=== PATIENT | male | born 1955 | race Caucasian/White ===

== ENCOUNTER 2019-10-29 07:57 | Day surgery (SDC) | payer BC, OTHER ==
[~2019-10-29 07:57] MED LIST: Lactated Ringers 1,000 ML IV SCH
--- NOTE | 2019-10-29 09:19 | PCM.PREANE ---
Preanesthetic Assessment - Anesthesia/Transfusion/Family Hx Anesthesia History: Prior Anesthesia Without Reaction Family History of Anesthesia Reaction: No Transfusion History: No Prior Transfusion(s) - Review of Systems General: No Symptoms Pulmonary: No Symptoms Cardiovascular: No Symptoms Gastrointestinal: No Symptoms Neurological: No Symptoms Other: Reports: None - Physical Assessment NPO Status Date: 10/28/19 NPO Status Time: 22:00 Vital Signs: Last Vital Signs Temp 98.2 F 10/29/19 08:15 Pulse 85 10/29/19 08:15 Resp 15 10/29/19 08:15 BP 130/85 10/29/19 08:15 Pulse Ox 94 L 10/29/19 08:15 Height: 5 ft 6 in Weight: 98.883 kg ASA Class: 2 Airway Class: Mallampati = 2 Dentition: Reports: Missing Tooth/Teeth (also loose mandibular central incisor) ROM/Head Extension: Full Lungs: Clear to Auscultation, Normal Respiratory Effort Cardiovascular: Regular Rate, Regular Rhythm - Allergies Allergies/Adverse Reactions: Allergies Allergy/AdvReac Type Severity Reaction Status Date / Time cephalexin monohydrate Allergy Hives Verified 10/24/19 08:57 [From Keflex] - Blood Blood Available: No - Anesthesia Plan Pre-Op Medication Ordered: None - Acknowledgements Anesthesia Type Planned: General Anesthesia Pt an Appropriate Candidate for the Planned Anesthesia: Yes Alternatives and Risks of Anesthesia Discussed w Pt/Guardian: Yes Pt/Guardian Understands and Agrees with Anesthesia Plan: Yes Additional Comments: PMH: htn- on no meds, bph, loose tooth PLAN: tiva PreAnesthesia Questionnaire HEENT History: Reports: Other (See Below) Other HEENT History: wears glasses Cardiovascular History: Reports: Hypertension Other Cardiovascular History: hx of hypertension- no medications now Respiratory History: Reports: Other (See Below) Other Respiratory History: his thinks he has sleep apnea- he has not been tested Gastrointestinal History: Reports: Colon Polyp, Hemorrhoids Musculoskeletal History: Reports: Gout Neurological History: Reports: Concussion Endocrine/Metabolic History: Reports: Obesity/BMI 30+ Hematologic History: Reports: Anemia, Iron Deficiency Dermatologic History: Reports: Eczema - Past Surgical History GI Surgical History: Reports: Hernia, Abdominal Other GI Surgeries/Procedures: hx of Umbilical Hernia repair - SUBSTANCE USE Smoking Status *Q: Never Smoker Recreational Drug Use History: No - HOME MEDS Home Medications: Home Meds Clobetasol [Clobetasol Propionate 0.05% Cream] 1 dose TOP BID PRN 10/24/19 [ History] Iron Ag,Ps/C/Fa6/B12/Zn/SA/Sto [Niferex Tablet] 1 tab PO DAILY 10/24/19 [History ] - CURRENT (IN HOUSE) MEDS Current Meds: Current Medications Lactated Ringer's (Ringers, Lactated) 1,000 mls @ 125 mls/hr IV ASDIRECTED [facility] Last Admin: 10/29/19 08:25 Dose: 125 mls/hr
[2019-10-29] MEDS ORDERED: Lidocaine 2% 5 ML SDV ONE (09:23)
[2019-10-29] MEDS ORDERED: Propofol 200 MG/20 ML SDV ONE ×2 (09:23→10:07)
[2019-10-29] MEDS ORDERED: Midazolam 1 MG/ML 2 ML SDV ONE (09:51)
--- NOTE | 2019-10-29 11:40 | PCM48HPAN ---
Post Anesthesia Note - EVALUATION WITHIN 48HRS OF ANESTHETIC Vital Signs in Normal Range: Yes Patient Participated in Evaluation: Yes Respiratory Function Stable: Yes Airway Patent: Yes Cardiovascular Function Stable: Yes Hydration Status Stable: Yes Pain Control Satisfactory: Yes Nausea and Vomiting Control Satisfactory: Yes Mental Status Recovered: Yes Vital Signs: Last Vital Signs Temp 98.2 F 10/29/19 08:15 Pulse 65 10/29/19 10:42 Resp 10 L 10/29/19 10:42 BP 132/78 10/29/19 10:42 Pulse Ox 96 10/29/19 10:42
--- NOTE | 2019-10-29 11:40 | PCM.POSTAN ---
POST ANESTHESIA ASSESSMENT - MENTAL STATUS Mental Status: Alert, Oriented - VITAL SIGNS Vital Signs: Last Vital Signs Temp 98.2 F 10/29/19 08:15 Pulse 65 10/29/19 10:42 Resp 10 L 10/29/19 10:42 BP 132/78 10/29/19 10:42 Pulse Ox 96 10/29/19 10:42 - RESPIRATORY Respiratory Status: Respiratory Rate WNL, Airway Patent - CARDIOVASCULAR CV Status: Pulse Rate WNL, Blood Pressure Stable - GASTROINTESTINAL GI Status: No Symptoms - POST OP HYDRATION Hydration Status: Adequate & Stable
--- NOTE | 2019-10-29 12:11 | PCM.OPNOTE ---
- General Post-Op/Procedure Note Date of Surgery/Procedure: 10/29/19 Operative Procedure(s): egd w bx. colonoscopy w bx and tattoo Findings: see [id number] Pre Op Diagnosis: BRBPR and gerd Post-Op Diagnosis: Same Anesthesia Technique: Moderate Sedation Primary Surgeon: Francisco Diana Pathology: egd bx colon mass at 45cm bx and tattooed Complications: None Condition: Good Free Text/Narrative:: Intake & Output 10/28/19 10/29/19 10/29/19 22:59 06:59 14:59 Intake Total 850 Balance 850
--- NOTE | 2019-10-29 12:54 | OR ---
SURGEON: Francisco Diana MD DATE OF PROCEDURE: 10/29/2019 PREOPERATIVE DIAGNOSES: Rectal bleeding and recurrent gastroesophageal reflux disease. PROCEDURES PERFORMED: Esophagogastroduodenoscopy with biopsy and colonoscopy. DESCRIPTION OF PROCEDURE: EGD: The patient was taken to the endoscopy room, and with the [employer] COORDINATOR, Diprivan was administered. A well-lubricated EGD scope was gently inserted through the oropharynx, down the esophagus, passing through the gastroesophageal junction, into the stomach. The mucosa was examined upon the passage. Any etiology will be noted. Once in the stomach, we continued to advance to the distal antrum, passed through the pylorus into the second portion of the duodenum. Again, the mucosa was examined for any abnormality and etiology. The scope was then retrieved back to the stomach and then retroflexed to look at the fundus of the stomach. If a biopsy was indicated, we will biopsy the antrum, body, and gastroesophageal junction. The air will be sucked out while the scope is retrieved to reduce the patient's discomfort. The patient tolerated the procedure well. There were no intraoperative complications. Dr. Diana was present through the whole procedure. Prior to surgery, a time-out had been called, the patient identified, procedure identified and antibiotic administered. The patient was taken to the endoscopy room. A time out was called, patient identified, and procedure identified. Diprivan was then administrated. Patient went from awake to sleep, hearing doctor talking or door closing is normal. Perineum inspection and digital examination were then performed. A well- lubricated colonoscope was gently inserted through the rectum, advanced past the rectosigmoid junction, the descending colon, splenic flexure, transverse colon, hepatic flexure, ascending colon, arrived to the cecum. Cecum was identified as dictated in the finding. Then the scope was carefully withdrawn while attention was paid to the mucosal surface for any abnormality. Air will be sucked out during the scope withdrawal. At the rectum, retroflexed to examine any rectal diseases, fistula or hemorrhoids. Patient tolerated procedure well. There were no intraoperative complications, and Dr. Diana was present throughout the whole procedure. FINDINGS: EGD findings: 1. The patient is easily sedated with [employer] COORDINATOR and Diprivan, the patient is soundly snoring. 2. Oropharynx and proximal esophagus are free of disease, stricture, ulceration, none of those. Distal esophagus at GE junction at 40 shows minimal salmon-colored change, suggests mild acid reflux. Stomach rugae are normal in appearance, and in the greater curvature, there are scattered and small gastric polyps, very small, about 1 mm, only a few of them. The antrum looks fine. Duodenum is grossly normal in appearance. Retroflexed look at the fundus of stomach, there is no hiatal hernia. Biopsy done at antrum, body, and biopsied one of the polyp and the GE junction at 40 and biopsy done at those places and sucked out the gas while scope pulling out. During the whole study, there is no ulcer, blood, bile, or food particle observed. Colonoscopy findings: 1. The patient is easily sedated with [employer]IENCE COORDINATOR and Diprivan, the patient is soundly snoring. 2. Bowel prep is average with some liquid stool, no semi-formed stool. 3. Colon, can only go to 45 cm and aborted. Encountered apple-core lesion and too small for the scope to pass through and very suspicious for malignancy. Biopsy done at apple-core lesion, and 10 cm prior to that, there is a small 3 mm sessile polyp. It was removed with biopsy forceps. The patient had some diverticula proximal to this. No signs or symptoms of diverticulitis. Retroflexed look at the rectum, the patient has mild internal hemorrhoids, no external hemorrhoids. The place where the apple-core lesion was and a little bit distal to that, like 1 to 2 cm, it was tattooed. Again, we did not attempt to pass the apple-core lesion as it is too tight and it really looks like malignancy. PLAN: The patient will return to the office, and we will probably get a CAT scan with p.o. and IV contrast 1 week from now and then will return to the office to discuss management plan. MARCELLE / YAIR /[id number]
--- NOTE | 2019-10-29 15:48 | PCM48HPAN ---
Post Anesthesia Note - EVALUATION WITHIN 48HRS OF ANESTHETIC Vital Signs in Normal Range: Yes Patient Participated in Evaluation: Yes Respiratory Function Stable: Yes Airway Patent: Yes Cardiovascular Function Stable: Yes Hydration Status Stable: Yes Pain Control Satisfactory: Yes Nausea and Vomiting Control Satisfactory: Yes Mental Status Recovered: Yes Vital Signs: Last Vital Signs Temp 36.8 C 10/29/19 10:50 Pulse 73 10/29/19 10:50 Resp 15 10/29/19 10:50 BP 140/77 10/29/19 10:50 Pulse Ox 97 10/29/19 10:50
== END 2019-10-29 11:20 | disposition home or self-care (01) ==
LOC: MW.SDS 07:57
PROVIDERS: ATTEND Surgery
DX: C18.7 Malignant neoplasm of sigmoid colon (principal); D12.5 Benign neoplasm of sigmoid colon; K21.9 Gastro-esophageal reflux disease without esophagitis; K31.7 Polyp of stomach and duodenum; K20.9 Esophagitis, unspecified; K64.8 Other hemorrhoids; I10 Essential (primary) hypertension; E66.9 Obesity, unspecified; Z88.1 Allergy status to other antibiotic agents; Z79.899 Other long term (current) drug therapy; Z68.35 Body mass index [BMI] 35.0-35.9, adult
CPT/HCPCS: 43239; 45378; 88305; 88312; J2001; J2250; J2704; J7120

== ENCOUNTER 2019-12-30 10:48 | Emergency (ER) | payer MEDICARE, OTHER ==
[2019-12-30] MEDS ORDERED: Sodium Chloride 0.9% 1,000 ML IV ONE (11:12)
[2019-12-30] MEDS: HYDROmorphone 1 MG/ML Syringe IVPUSH PRN ×2 (11:21→14:48)
[2019-12-30] MEDS ORDERED: Ondansetron 4 MG/2 ML SDV IVPUSH ONE ×2 (11:23→11:24)
[2019-12-30] MEDS ORDERED: Ondansetron 4 MG/2 ML SDV ONE (11:24)
[2019-12-30 11:57] LABS: CARBON DIOXIDE,CO2 21.8 mmol/L (21.0-32.0); POTASSIUM,K 3.9 mmol/L (3.5-5.1)
[2019-12-30] MEDS ORDERED: Sodium Chloride 0.9% 500 ML IV ONE ×2 (12:03→14:03)
--- NOTE | 2019-12-30 13:02 | CT ---
CT abdomen and pelvis Technique: Multiple axial sections were obtained from above the dome of the diaphragm inferiorly through the pubic symphysis. Intravenous contrast not utilized. Oral contrast has been given. Comparison: Prior CT abdomen and pelvis study of 11/07/19. Findings: Ascites is seen around the liver and spleen as well as ascites within both paracolic gutters and within the pelvis. This ascites is an interval change from previous exam. Free air is also identified beneath the right hemidiaphragm. Small calcified gallstones noted within the gallbladder. Calcified granuloma is seen within the spleen. Adrenal glands show no nodule. Pancreas is within normal limits. Kidneys show cysts which appears stable from previous exam. Aorta shows no aneurysm. No retroperitoneal adenopathy is seen. No discrete pelvic mass or adenopathy is identified. Impression: 1. Moderate amount of ascites within the abdomen. 2. Free air is seen. Etiology for the free air is not identified on this exam. 3. Other findings believed to be stable as noted above. Diagnostic code #3 Study was dictated in MDT
--- NOTE | 2019-12-30 13:02 | CT ---
CT chest Technique: Multiple axial sections through the chest are obtained. Intravenous contrast was not utilized. Comparison: Prior CT abdomen and pelvis exam of 11/07/27. Findings: Ascites is seen around the liver and spleen. Free air is identified within the abdomen. Etiology for these findings are not seen on this exam. Mild coronary artery calcification is seen. No pericardial thickening is seen. Aorta shows atherosclerotic calcification without aneurysm. Mediastinum and hilar regions show no adenopathy. No axillary adenopathy is identified. Areas of consolidation seen within the left lung base and difficult to exclude pneumonia. Areas of atelectasis also noted within both lung bases as well as atelectasis or scarring within the upper right lung. No groundglass opacities are seen within the chest. Bone window settings were reviewed. Fusion is noted within 2 lower thoracic vertebral bodies. Scattered degenerative change is seen within the spine. No acute osseous finding is appreciated. Impression: 1. Focal consolidation within the left lower lung. This finding is not identified on prior CT abdomen and pelvis study. Findings suggest the possibility of pneumonia. 2. Atelectasis is also noted within both lung bases. Atelectasis or scarring within the right upper lung. 3. Free air and mild ascites within the abdomen. Etiology for these findings are not seen. Diagnostic code #5 Study was dictated in MDT
[2019-12-30] MEDS ORDERED: Iopamidol 755 MG/ML 500 ML Multipack Bottle IVPUSH STA (13:17)
[2019-12-30] MEDS ORDERED: Vancomycin 25 MG/ML Compounding Kit PO STA (13:30)
[2019-12-30] MEDS ORDERED: Piperacillin/Tazobactam 3.375 GM in Sodium Chloride 0.9% 50 ML IV ONE (13:30)
--- NOTE | 2019-12-30 14:05 | EDM.PDOC ---
ED HPI GENERAL MEDICAL PROBLEM - General Chief Complaint: Gastrointestinal Problem Stated Complaint: WEAKNESS Time Seen by Provider: 12/30/19 10:49 - History of Present Illness INITIAL COMMENTS - FREE TEXT/NARRATIVE: HPI 55-year-old male with history of colon CA F/P resection on 12/18/19 presents for evaluation of 3 days of poorly characterized right-sided abdominal pain, frequent loose watery stools, and mild malaise. Patient reports that he believes he had a low-grade fever (upwards of 100F by oral measurement) on the first day of his symptoms, has otherwise been afebrile, no cough, shortness breath. Patient notes that he took an antibiotic and mutely preceding and one or 2 days following his surgery, these appear to have been prophylactic antibiotics. Patient is unsure what these antibiotics were. Patient denies known sick contacts. No identifiable provoking or relieving factors. Patient present to the ED for care due to persistence of symptoms. Patient is not discussed these symptoms with his surgeon. Patient had surgery in [facility]. Patient took 2 acetaminophen prior to presentation. M/S/F/SocHx notable for: please see HPI; remainder reviewed with patient and in chart. ROS: Negative constitutional, eye, cardiovascular, pulmonary, GI, , MSK, skin , neurologic, psychiatric, endocrine unless noted in the HPI. Exam HR 107, RR 18, BP 140/84, T 35.7C, SaO2 96% on room air. Gen: pleasant, appears given age, not in extremis, resting in mild discomfort. HEENT: NC, AT, PEERL, EOMI. Resp: Clear to auscultation bilaterally, normal work of breathing, no accessory muscle usage. Card: Regular rate and rhythm with no murmurs, rubs, or gallops, extremities warm and well perfused. GI: well-healed laparoscopic incision is in the lower abdomen, right lower quadrant tenderness palpation, remainder of abdomen nontender to palpation. : No suprapubic tenderness to palpation. MSK: No visible deformities, strength and tone without visually appreciable deficit. Skin: Normal color with no visible lesions. Neuro: alert and oriented 3, no facial asymmetry, vision and hearing WNL. Psych: Mood and affect appropriate. Labs / Imaging: WBC 25.8, Hb 10.5, Na 131, K 3.9, total bilirubin 0.5, AST 18, ALT 26, ALP 144, lipase 273, lactic acid 1.3. CT chest: 1. Focal consolidation within the left lower lung. This finding is not identified on prior CT abdomen pelvis study. Findings suggest the possibility of pneumonia. 2. Atelectasis is noted within both lung bases. Atelectasis or scarring within the right upper long. 3. Free air mild assays in the abdomen. Etiology for these findings are not seen. CT abdomen: 1. Moderate amount of ascites within the abdomen. 2. Free air is seen. Etiology for the free air is not identified on this exam. C. difficile, Legionella urine antigen, and urinalysis pending. MDM Previous chart, nursing note, labs, imaging, and vitals reviewed. A: 55-year-old male with history of colon CA F/P resection on 12/18/19 presents for evaluation of 3 days of poorly characterized right-sided abdominal pain, frequent loose watery stools, and mild malaise. DDx: appendicitis, diarrhea 2/2 antibiotics, C. difficile, gastroenteritis ( viral versus bacterial), COVID-19, mesenteric ischemia, pyelonephritis, dehydration, electrolyte abnormalities, sepsis. Evaluation: laboratory studies notable for leukocytosis, mild hyponatremia, and normal lactic acid, imaging with some free air in the abdomen, ascites, and focal consolidation the left lower lung. It is unclear if the patient has pneumonia given his absence of cough and shortness of breath, his intrabdominal free fluid and free air is most likely a surgical complication (images were reviewed by Dr. Recinos, the general surgeon on-call of this hospital who felt that the amount of free air was excessive given the amount of postoperative time ). The patient was given 1.5 g vancomycin and 3.375 g Zosyn for initial treatment. With respect to sepsis, patient meets CMS / SIRs criteria ( temperature, heart rate, leukocytosis and a source). C. difficile colitis remains on the differential, however given an alternate diagnosis this is less likely, with respect to the possible pneumonia, a legionnaires urine antigen was ordered given the patients concurrent diarrhea and mild hyponatremia. Conceivably, COVID-19 could be present (diarrhea, pulmonary changes), however, given alternate diagnosis and relatively low prevalence in the community, this is felt to be less likely as well. ED Course: laboratory studies (CBC, CMP, lipase, UA, lactic acid), imaging (CT chest w/ o contrast, and CT and pelvis w/ contrast) ordered for initial evaluation. P.r.n. hydromorphone, 1 L NS, and 4 mg Zofran given for symptom control. Additional 500 MLs NS ordered. Urinalysis and stool studies delayed, given the patients abdominal tenderness, comorbidities, antibiotics were initiated with these studies pending. Zosyn and vancomycin IV ordered. As patient meets sepsis criteria a further 500 ML NS to reach a 30 ML/KG fluid bolus based upon a IBW of 64 kg was ordered. Unable to obtain outside records in a timely manner. Discuss case with the patients surgeon at [place] in [place], patient accepted in transfer. Updated patient, patient to go by ground ALS given his clinical stability. Impression: diarrhea, postoperative free air, sepsis. (please reference below for remainder of encounter information) Critical Care Time Organ system(s): Cardiopulmonary, vascular, GATE KEEPER, Renal Intervention: Assessment of the patient, interpretation of studies, communication related to patient care. Time: 30 minutes were spent directly related to patient care exclusive of separately billed procedures [place] Body Weight and Adjusted Body Weight from [place] on 12/30/2019 All calculations should be rechecked by clinician prior to use RESULT SUMMARY: 64 kg [place] Body Weight INPUTS: Sex > 0 = Male Height > 168 cm Right Middle Abdomen Pain Score (Numeric/FACES): 10 - Related Data Allergies Allergy/AdvReac Type Severity Reaction Status Date / Time cephalexin monohydrate Allergy Hives Verified 12/30/19 10:53 [From Keflex] Home Meds: Home Meds oxyCODONE 5 mg PO 12/30/19 [History] Past Medical History HEENT History: Reports: Other (See Below) Other HEENT History: wears glasses Cardiovascular History: Reports: Hypertension Other Cardiovascular History: hx of hypertension- no medications now Respiratory History: Reports: Other (See Below) Other Respiratory History: his thinks he has sleep apnea- he has not been tested Gastrointestinal History: Reports: Colon Polyp, Hemorrhoids Musculoskeletal History: Reports: Gout Neurological History: Reports: Concussion Endocrine/Metabolic History: Reports: Obesity/BMI 30+ Hematologic History: Reports: Anemia, Iron Deficiency Oncologic (Cancer) History: Reports: Colon Dermatologic History: Reports: Eczema - Infectious Disease History Infectious Disease History: Reports: Measles - Past Surgical History GI Surgical History: Reports: Hernia, Abdominal, Other (See Below) Other GI Surgeries/Procedures: hx of Umbilical Hernia repair, history of colon cancer and recent resection 12/11 Oncologic Surgical History: Reports: Other (See Below) Other Oncologic Surgeries/Procedures: Colon resection 12/18/19 Social & Family History - Family History Family Medical History: Unobtainable - Tobacco Use Smoking Status *Q: Never Smoker Second Hand Smoke Exposure: No - Caffeine Use Caffeine Use: Reports: Coffee - Recreational Drug Use Recreational Drug Use: No ED ROS GENERAL - Review of Systems Review Of Systems: See Below ED EXAM, GENERAL - Physical Exam Exam: See Below Course - Vital Signs Last Recorded V/S: Last Vital Signs Temp 35.8 C L 12/30/19 13:39 Pulse 84 12/30/19 13:39 Resp 18 12/30/19 13:39 BP 126/75 12/30/19 14:03 Pulse Ox 94 L 12/30/19 13:39 - Orders/Labs/Meds Orders: Active Orders 24 hr Category Date Time Status Communication Order [RC] STAT Care 12/30/19 13:15 Active CULTURE BLOOD [BC] Stat Lab 12/30/19 12:13 Received CULTURE BLOOD [BC] Stat Lab 12/30/19 12:22 Received LEGIONELLA ANTIGEN [MREF] Stat Lab 12/30/19 13:13 Ordered UA RFX JOHN AND CULT IF INDIC [URIN] Stat Lab 12/30/19 11:12 Ordered HYDROmorphone [Dilaudid] Med 12/30/19 11:12 Active 0.5 - 1 mg IVPUSH Q1H PRN Sodium Chloride 0.9% [Normal Saline] 500 ml Med 12/30/19 14:03 Ordered IV .Bolus VANCOmycin/Water for INJ (PEG) [VANCOmycin 1.5 GM/300 Med 12/30/19 14:00 Active ML Premix] 1.5 gm Premix Bag 1 bag IV ONETIME Blood Culture x2 Reflex Set [OM.PC] Stat Oth 12/30/19 12:03 Ordered Medication Orders Hydromorphone HCl (Dilaudid) 0.5 - 1 mg IVPUSH Q1H PRN PRN Reason: Pain Last Admin: 12/30/19 11:21 Dose: 0.5 mg Vancomycin HCl 1.5 gm/ Premix 300 mls @ 200 mls/hr IV ONETIME ONE Stop: 12/30/19 15:29 Last Admin: 12/30/19 13:52 Dose: 200 mls/hr Sodium Chloride (Normal Saline) 500 mls @ 1,000 mls/hr IV .Bolus ONE Stop: 12/30/19 14:32 Labs: Laboratory Tests 12/30/19 12/30/19 12/30/19 Range/Units 11:15 11:15 11:15 WBC 25.77 H (4.0-11.0) K/uL RBC 5.29 (4.50-5.90) M/uL Hgb 10.5 L (13.0-17.0) g/dL Hct 35.4 L (38.0-50.0) % MCV 66.9 L (80.0-98.0) fL MCH 19.8 L (27.0-32.0) pg MCHC 29.7 L (31.0-37.0) g/dL RDW Std Deviation 42.2 (28.0-62.0) fl RDW Coeff of Pippa 17 H (11.0-15.0) % Plt Count 692 H (150-400) K/uL MPV 9.50 (7.40-12.00) fL Neut % (Auto) 90.7 H (48.0-80.0) % Lymph % (Auto) 2.8 L (16.0-40.0) % [place] % (Auto) 5.7 (0.0-15.0) % Eos % (Auto) 0.6 (0.0-7.0) % Baso % (Auto) 0.2 (0.0-1.5) % Neut # (Auto) 23.4 H (1.4-5.7) K/uL Lymph # (Auto) 0.7 (0.6-2.4) K/uL [place] # (Auto) 1.5 H (0.0-0.8) K/uL Eos # (Auto) 0.2 (0.0-0.7) K/uL Baso # (Auto) 0.0 (0.0-0.1) K/uL Nucleated RBC % 0.0 /100WBC Nucleated RBCs # 0 K/uL Lactate 1.3 (0.20-2.00) mmol/L Sodium 131 L (136-148) mmol/L Potassium 3.9 (3.5-5.1) mmol/L Chloride 95 L (98-107) mmol/L Carbon Dioxide 21.8 (21.0-32.0) mmol/L BUN 31 H (7.0-18.0) mg/dL Creatinine 1.3 (0.8-1.3) mg/dL Est Cr Clr Drug Dosing 51.12 mL/min Estimated GFR (MDRD) 55.4 ml/min Glucose 124 H (74-106) mg/dL Calcium 8.6 (8.5-10.1) mg/dL Total Bilirubin 0.5 (0.2-1.0) mg/dL AST 18 (15-37) IU/L ALT 26 (14-63) IU/L Alkaline Phosphatase 144 H (46-116) U/L Total Protein 6.6 (6.4-8.2) g/dL Albumin 2.1 L (3.4-5.0) g/dL Globulin 4.5 H (2.6-4.0) g/dL Albumin/Globulin Ratio 0.5 L (0.9-1.6) Lipase 273 (73-393) U/L Meds: Medications Generic Name Dose Route Start Last Admin Trade Name Freq PRN Reason Stop Dose Admin Hydromorphone HCl 0.5 - 1 mg 12/30/19 11:12 12/30/19 11:21 Dilaudid IVPUSH 0.5 mg Q1H PRN Administration Pain Vancomycin HCl 1.5 gm/ Premix 300 mls @ 200 mls/hr 12/30/19 14:00 12/30/19 13 :52 IV 12/30/19 15:29 200 mls/hr ONETIME ONE Administration Sodium Chloride 500 mls @ 1,000 mls/hr 12/30/19 14:03 Normal Saline IV 12/30/19 14:32 .Bolus ONE Discontinued Medications Generic Name Dose Route Start Last Admin Trade Name Pedro Pablo PRN Reason Stop Dose Admin Sodium Chloride 1,000 mls @ 1,000 mls/hr 12/30/19 11:12 12/30/19 11:21 Normal Saline IV 12/30/19 12:11 1,000 mls/hr .Bolus ONE Administration Sodium Chloride 500 mls @ 1,000 mls/hr 12/30/19 12:03 12/30/19 12:12 Normal Saline IV 12/30/19 12:32 1,000 mls/hr .Bolus ONE Administration Piperacillin Sod/Tazobactam 50 mls @ 100 mls/hr 12/30/19 13:30 12/30/19 13:51 Sod 3.375 gm/ Sodium Chloride IV 12/30/19 13:59 100 mls/hr ONETIME ONE Administration Iopamidol 100 ml 12/30/19 13:17 12/30/19 13:18 Isovue Multipack-370 (76%) IVPUSH 12/30/19 13:18 100 ml ONETIME STA Administration Ondansetron HCl 4 mg 12/30/19 11:23 12/30/19 11:25 Zofran IVPUSH 12/30/19 11:24 Not Given ONETIME ONE Ondansetron HCl 4 mg 12/30/19 11:24 12/30/19 11:25 Zofran IVPUSH 12/30/19 11:25 4 mg ONETIME ONE Administration Ondansetron HCl Confirm 12/30/19 11:24 12/30/19 11:32 Zofran Administered 12/30/19 11:25 Not Given Dose 4 mg .ROUTE .STK-MED ONE Vancomycin HCl 500 mg 12/30/19 13:30 12/30/19 13:51 First-Vancomycin 25 Compounding Kit PO 12/30/19 13:31 Not Given NOW STA Departure - Departure Time of Disposition: 14:05 Disposition: DC/Tfer to Other 70 Clinical Impression: Diarrhea, Postoperative abdominal pain, Sepsis - Discharge Information Referrals: Francisco Diana MD [Primary Care Provider] - Sepsis Event Note - Evaluation Sepsis Screening Result: No Definite Risk - Focused Exam Vital Signs: Vital Signs Temp Pulse Resp BP Pulse Ox 12/30/19 14:03 126/75 12/30/19 13:39 35.8 C L 84 18 94 L 12/30/19 12:06 96 18 126/75 95 12/30/19 10:49 35.7 C L 107 H 18 140/84 96 Date Exam was Performed: 12/30/19 Time Exam was Performed: 14:04 - My Orders Last 24 Hours: My Active Orders 12/30/19 11:12 UA RFX JOHN AND CULT IF INDIC [URIN] Stat HYDROmorphone [Dilaudid] 0.5 - 1 mg IVPUSH Q1H PRN 12/30/19 12:03 Blood Culture x2 Reflex Set [OM.PC] Stat 12/30/19 12:13 CULTURE BLOOD [BC] Stat 12/30/19 12:22 CULTURE BLOOD [BC] Stat 12/30/19 13:13 LEGIONELLA ANTIGEN [MREF] Stat 12/30/19 13:15 Communication Order [RC] STAT 12/30/19 14:00 VANCOmycin/Water for INJ (PEG) [VANCOmycin 1.5 GM/300 ML Premix] 1.5 gm Premix Bag 1 bag IV ONETIME 12/30/19 14:03 Sodium Chloride 0.9% [Normal Saline] 500 ml IV .Bolus - Assessment/Plan Last 24 Hours: My Active Orders 12/30/19 11:12 UA RFX JOHN AND CULT IF INDIC [URIN] Stat HYDROmorphone [Dilaudid] 0.5 - 1 mg IVPUSH Q1H PRN 12/30/19 12:03 Blood Culture x2 Reflex Set [OM.PC] Stat 12/30/19 12:13 CULTURE BLOOD [BC] Stat 12/30/19 12:22 CULTURE BLOOD [BC] Stat 12/30/19 13:13 LEGIONELLA ANTIGEN [MREF] Stat 12/30/19 13:15 Communication Order [RC] STAT 12/30/19 14:00 VANCOmycin/Water for INJ (PEG) [VANCOmycin 1.5 GM/300 ML Premix] 1.5 gm Premix Bag 1 bag IV ONETIME 12/30/19 14:03 Sodium Chloride 0.9% [Normal Saline] 500 ml IV .Bolus
== END 2019-12-30 15:04 | disposition other institution (70) ==
LOC: MW.ED 10:48
DX: A41.9 Sepsis, unspecified organism (principal); G89.18 Other acute postprocedural pain; R19.7 Diarrhea, unspecified; I10 Essential (primary) hypertension; E66.9 Obesity, unspecified; Z88.1 Allergy status to other antibiotic agents
CPT/HCPCS: 36415; 71250; 74177; 80053; 81001; 83605; 83690; 85025; 87040; 87324; 87899; 96361; 96365; 96368; 96375; 96376; 99285; A9270; J1170; J2405; J2543; J3370; J7030; J7050; Q9967; 99291

== ENCOUNTER 2020-02-06 09:24 | Emergency (ER) | payer OTHER, MEDICARE ==
[2020-02-06] MEDS ORDERED: Sodium Chloride 0.9% 1,000 ML IV ONE (09:50)
--- NOTE | 2020-02-06 10:40 | CR ---
Chest: Frontal view of the chest was obtained. Comparison: No prior chest imaging, previous chest CT of 12/30/19. Slight scarring is noted within the left base. No acute parenchymal change is seen. Heart size is normal. Tortuous thoracic aorta is seen. Scattered disc space narrowing and endplate spurring is noted within the spine. Impression: 1. Nothing acute is seen on frontal chest x-ray. Diagnostic code #2 This report was dictated in MDT
--- NOTE | 2020-02-06 10:51 | CT ---
CT abdomen and pelvis Technique: Multiple axial sections were obtained from above the dome of the diaphragm inferiorly through the pubic symphysis. Intravenous contrast was utilized. No oral contrast has been given. Comparison: Prior CT abdomen and pelvis exam of 12/30/19. Findings: Small bowel ostomy is noted within the right lower abdomen. Increased density is noted around the umbilicus most likely relating to scarring. There is a low density abnormality being seen anteriorly within the upper abdomen surrounded by small bowel loops. This finding shows surrounding inflammatory change. This low density finding measures 6.1 cm x 3.8 cm and is suspicious for an intra-abdominal abscess. Surrounding small bowel shows wall thickening compatible with inflammatory change. Gallstones which are calcified are seen within the gallbladder. Liver contains no focal parenchymal abnormality. Spleen appears within normal limits. Visualized lung bases shows scarring within the left base. Fatty containing right adrenal nodule is noted which is stable and compatible with a myelolipoma. Adrenal glands are otherwise unremarkable. Cysts are noted within the kidneys. Pancreas shows no discrete abnormality. Aorta shows no aneurysm. No retroperitoneal adenopathy or mesenteric abnormalities are otherwise seen. Prostate gland is enlarged. Bone window settings were reviewed which shows mild scattered degenerative change within the spine. Impression: 1. Findings which are felt compatible with upper anterior intra-abdominal abscess. Several surrounding small bowel loops are seen showing wall thickening compatible with inflammatory wall thickening. Other inflammatory changes seen surrounding this finding. Finding measures 6.1 x 3.8 cm. 2. Other findings as noted above believed to be incidental and nonacute. 3. Small bowel ostomy within the right lower abdomen. Diagnostic code #5 This report was dictated in MDT
[2020-02-06 11:15] LABS: BLOOD UREA NITROGEN,BUN 14 mg/dL (7.0-18.0); CARBON DIOXIDE,CO2 22.5 mmol/L (21.0-32.0); CHLORIDE,CL 96 mmol/L (98-107); GLUCOSE RANDOM 106 mg/dL (74-106); POTASSIUM,K 3.8 mmol/L (3.5-5.1); SODIUM,NA 130 mmol/L (136-148)
[2020-02-06] MEDS ORDERED: metroNIDAZOLE/Normal Saline 500 MG in Premix Bag 1 BAG IV ONE (11:47)
--- NOTE | 2020-02-06 11:55 | EDM.PDOC ---
ED HPI GENERAL MEDICAL PROBLEM - General Chief Complaint: Gastrointestinal Problem Stated Complaint: FEVER/ABCESS Time Seen by Provider: 02/06/20 09:45 Source of Information: Reports: Patient History Limitations: Reports: No Limitations - History of Present Illness INITIAL COMMENTS - FREE TEXT/NARRATIVE: Is a 4-year-old gentleman who presents to the emergency room with a fever. Patient is status post abdominal surgery open appendectomy with a gangrenous appendicitis. Patient also has colon cancer Onset: Today Duration: Hour(s): Location: Reports: Abdomen Quality: Reports: Dull Severity: Mild Worsens with: Reports: None Associated Symptoms: Reports: Fever/Chills, Rash Abdominal Pain Score (Numeric/FACES): 6 - Related Data Allergies Allergy/AdvReac Type Severity Reaction Status Date / Time cephalexin monohydrate Allergy Hives Verified 02/06/20 09:36 [From Keflex] Home Meds: Home Meds . [No Known Home Meds] 02/06/20 [History] Past Medical History HEENT History: Reports: Other (See Below) Other HEENT History: wears glasses Cardiovascular History: Reports: Hypertension Other Cardiovascular History: hx of hypertension- no medications now Respiratory History: Reports: Other (See Below) Other Respiratory History: his thinks he has sleep apnea- he has not been tested Gastrointestinal History: Reports: Colon Polyp, Hemorrhoids Musculoskeletal History: Reports: Gout Neurological History: Reports: Concussion Endocrine/Metabolic History: Reports: Obesity/BMI 30+ Hematologic History: Reports: Anemia, Iron Deficiency Oncologic (Cancer) History: Reports: Colon Dermatologic History: Reports: Eczema - Infectious Disease History Infectious Disease History: Reports: None - Past Surgical History GI Surgical History: Reports: Appendectomy, Hernia, Abdominal, Other (See Below) Other GI Surgeries/Procedures: hx of Umbilical Hernia repair, history of colon cancer and recent resection 12/11 Oncologic Surgical History: Reports: Other (See Below) Other Oncologic Surgeries/Procedures: Colon resection 12/18/19 Social & Family History - Family History Family Medical History: Unobtainable - Tobacco Use Smoking Status *Q: Never Smoker - Caffeine Use Caffeine Use: Reports: None - Recreational Drug Use Recreational Drug Use: No ED ROS GENERAL - Review of Systems Review Of Systems: See Below Constitutional: Reports: No Symptoms, Fever, Chills HEENT: Reports: No Symptoms Respiratory: Reports: No Symptoms Cardiovascular: Reports: No Symptoms Endocrine: Reports: No Symptoms GI/Abdominal: Reports: Abdominal Pain : Reports: No Symptoms Musculoskeletal: Reports: No Symptoms Skin: Reports: No Symptoms Neurological: Reports: No Symptoms Psychiatric: Reports: No Symptoms Hematologic/Lymphatic: Reports: No Symptoms Immunologic: Reports: No Symptoms ED EXAM, GI/ABD - Physical Exam Exam: See Below Exam Limited By: No Limitations General Appearance: Alert, WD/WN, No Apparent Distress Eyes: Bilateral: Normal Appearance Ears: Normal External Exam, Normal Canal, Hearing Grossly Normal, Normal TMs Nose: Normal Inspection Throat/Mouth: Normal Inspection, Normal Lips, Normal Teeth Head: Atraumatic, Normocephalic Neck: Normal Inspection, Supple, Non-Tender Cardiovascular: Normal Peripheral Pulses, Regular Rate, Rhythm, No JVD, No Murmur GI/Abdominal Exam: Normal Bowel Sounds, No Organomegaly, No Distention, No Abnormal Bruit, Tender, Other (Patient has colostomy draining with minimal pain) Psychiatric: Normal Affect, Normal Mood Skin Exam: Warm, Dry, Intact, Normal Color Lymphatic: No Adenopathy Course - Vital Signs Text/Narrative:: Has been sent to the emergency room by his surgeon Daron at [place]. Has a fever. Patient found to have a white count of 12.7 which is increased from previous CBC patient also had a CT scan which shows an intra-abdominal abscess. I have discussed the case with his surgeon and patient will be transferred to [place] for definitive care. Patient needs interventional radiologist for drainage. Patient will be placed on antibiotics in route patient is stable at this time with normal vitals. Last Recorded V/S: Last Vital Signs Temp 97.5 F 02/06/20 09:37 Pulse 100 02/06/20 10:51 Resp 17 02/06/20 10:51 BP 130/84 02/06/20 10:51 Pulse Ox 99 02/06/20 10:51 - Orders/Labs/Meds Orders: Active Orders 24 hr Category Date Time Status CULTURE BLOOD [BC] Stat Lab 02/06/20 11:48 Ordered CULTURE BLOOD [BC] Stat Lab 02/06/20 11:48 Ordered metroNIDAZOLE/Normal Saline [Flagyl 500 MG in NS 100 ML Med 02/06/20 11:47 Ordered ] 500 mg Premix Bag 1 bag IV ONETIME Blood Culture x2 Reflex Set [OM.PC] Stat Oth 02/06/20 11:48 Ordered Medication Orders Metronidazole 500 mg/ Premix 100 mls @ 100 mls/hr IV ONETIME ONE Stop: 02/06/20 12:46 Labs: Laboratory Tests 02/06/20 02/06/20 02/06/20 Range/Units 09:49 10:38 10:38 WBC 12.79 H (4.0-11.0) K/uL RBC 5.00 (4.50-5.90) M/uL Hgb 10.6 L (13.0-17.0) g/dL Hct 35.7 L (38.0-50.0) % MCV 71.4 L (80.0-98.0) fL MCH 21.2 L (27.0-32.0) pg MCHC 29.7 L (31.0-37.0) g/dL RDW Std Deviation 54.2 (28.0-62.0) fl RDW Coeff of Pippa 21 H (11.0-15.0) % Plt Count 303 (150-400) K/uL MPV 9.90 (7.40-12.00) fL Neut % (Auto) 81.8 H (48.0-80.0) % Lymph % (Auto) 5.4 L (16.0-40.0) % [place] % (Auto) 12.4 (0.0-15.0) % Eos % (Auto) 0.2 (0.0-7.0) % Baso % (Auto) 0.2 (0.0-1.5) % Neut # (Auto) 10.5 H (1.4-5.7) K/uL Lymph # (Auto) 0.7 (0.6-2.4) K/uL [place] # (Auto) 1.6 H (0.0-0.8) K/uL Eos # (Auto) 0.0 (0.0-0.7) K/uL Baso # (Auto) 0.0 (0.0-0.1) K/uL Nucleated RBC % 0.0 /100WBC Nucleated RBCs # 0 K/uL Sodium 130 L (136-148) mmol/L Potassium 3.8 (3.5-5.1) mmol/L Chloride 96 L (98-107) mmol/L Carbon Dioxide 22.5 (21.0-32.0) mmol/L BUN 14 (7.0-18.0) mg/dL Creatinine 1.1 (0.8-1.3) mg/dL Est Cr Clr Drug Dosing 60.42 mL/min Estimated GFR (MDRD) > 60.0 ml/min Glucose 106 (74-106) mg/dL Calcium 8.6 (8.5-10.1) mg/dL Total Bilirubin 0.6 (0.2-1.0) mg/dL AST 13 L (15-37) IU/L ALT 22 (14-63) IU/L Alkaline Phosphatase 114 (46-116) U/L Total Protein 7.5 (6.4-8.2) g/dL Albumin 2.9 L (3.4-5.0) g/dL Globulin 4.6 H (2.6-4.0) g/dL Albumin/Globulin Ratio 0.6 L (0.9-1.6) Urine Color DARK YELLOW Urine Appearance CLEAR Urine pH 5.5 (5.0-8.0) Ur Specific [place] 1.010 (1.001-1.035) Urine Protein TRACE H (NEGATIVE) mg/dL Urine Glucose (UA) NEGATIVE (NEGATIVE) mg/dL Urine Ketones NEGATIVE (NEGATIVE) mg/dL Urine Occult Blood TRACE-INTACT H (NEGATIVE) Urine Nitrite NEGATIVE (NEGATIVE) Urine Bilirubin NEGATIVE (NEGATIVE) Urine Urobilinogen 0.2 (<2.0) EU/dL Ur Leukocyte Esterase NEGATIVE (NEGATIVE) Urine RBC 0-2 (0-2/HPF) Urine WBC 0-2 (0-5/HPF) Ur Epithelial Cells OCCASIONAL (NONE-FEW) Other Crystals FEW Urine Mucus LIGHT (NONE-MOD) Meds: Medications Generic Name Dose Route Start Last Admin Trade Name Freq PRN Reason Stop Dose Admin Metronidazole 500 mg/ Premix 100 mls @ 100 mls/hr 02/06/20 11:47 IV 02/06/20 12:46 ONETIME ONE Discontinued Medications Generic Name Dose Route Start Last Admin Trade Name Freq PRN Reason Stop Dose Admin Sodium Chloride 1,000 mls @ 1,000 mls/hr 02/06/20 09:50 02/06/20 10:38 Normal Saline IV 02/06/20 10:49 1,000 mls/hr .Bolus ONE Administration Departure - Departure Time of Disposition: 01:00 Disposition: DC/Tfer to Acute Hospital 02 Condition: Good Clinical Impression: Intra-abdominal abscess - Discharge Information Referrals: Ozzy Harding MD [Primary Care Provider] - Sepsis Event Note - Evaluation Sepsis Screening Result: No Definite Risk - Focused Exam Vital Signs: Vital Signs Temp Pulse Resp BP Pulse Ox 02/06/20 10:51 100 17 130/84 99 02/06/20 09:37 97.5 F 111 H 18 111/85 97 Date Exam was Performed: 02/06/20 Time Exam was Performed: 11:48 - My Orders Last 24 Hours: My Active Orders 02/06/20 11:47 metroNIDAZOLE/Normal Saline [Flagyl 500 MG in NS 100 ML] 500 mg Premix Bag 1 bag IV ONETIME 02/06/20 11:48 CULTURE BLOOD [BC] Stat CULTURE BLOOD [BC] Stat Blood Culture x2 Reflex Set [OM.PC] Stat - Assessment/Plan Last 24 Hours: My Active Orders 02/06/20 11:47 metroNIDAZOLE/Normal Saline [Flagyl 500 MG in NS 100 ML] 500 mg Premix Bag 1 bag IV ONETIME 02/06/20 11:48 CULTURE BLOOD [BC] Stat CULTURE BLOOD [BC] Stat Blood Culture x2 Reflex Set [OM.PC] Stat
[2020-02-06] MEDS ORDERED: Iopamidol 755 Mg/ML 100 ML Bottle IVPUSH STA (14:38)
== END 2020-02-06 16:40 ==
LOC: MW.ED 09:24
DX: K65.1 Peritoneal abscess (principal); I10 Essential (primary) hypertension; E66.9 Obesity, unspecified; Z88.1 Allergy status to other antibiotic agents; Z68.30 Body mass index [BMI] 30.0-30.9, adult
CPT/HCPCS: 36415; 71045; 74177; 80053; 81001; 85025; 87040; 96361; 96365; 99285; J3490; J7030; Q9967; 99283

== ENCOUNTER 2021-02-23 20:53 | Emergency (ER) | payer OTHER, MEDICARE ==
--- NOTE | 2021-02-23 21:07 | EDM.PDOC ---
<Scotty Corrale - Last Filed: 02/24/21 01:10> ED HPI GENERAL MEDICAL PROBLEM - General Chief Complaint: Abdominal Pain Stated Complaint: FEVER, DEHYDRATION Time Seen by Provider: 02/23/21 21:00 - Related Data Allergies Allergy/AdvReac Type Severity Reaction Status Date / Time cephalexin monohydrate Allergy Hives Verified 02/23/21 21:04 [From Keflex] Home Meds: Home Meds . [No Known Home Meds] 02/06/20 [History] Departure - Departure Time of Disposition: 01:10 Disposition: DC/Tfer to Acute Hospital 02 Condition: Good Clinical Impression: Choledocholithiasis - Discharge Information Referrals: Bhavya Jimenes MD [Primary Care Provider] - Forms: ED Department Discharge - Assessment/Plan Assessment:: Patient received in signout from prior provider evaluated by myself as well as a 65-year-old male he has a history of colon cancer with surgeries 1 year ago but now considered cancer free he was presenting with right upper quadrant discomfort significant nausea and significant anorexia over the last 2 days. He reports on and off fevers but is afebrile here he had some minimal tachycardia that resolved here in the ER. His labs show transaminitis his white blood cell count is normal. CT scan demonstrates choledocholithiasis. Given this I think the patient requires transfer to a higher level of care for potential consideration for GI evaluation and ERCP. Right now but the patient's white count is normal his CT scan does not show any signs of acute cholecystitis but given the choledocholithiasis will cover with antibiotics and discussed with providers in [place]. 0110: Patient agrees to transfer. Patient discussed in full with Dr. Lui at [facility] and has been accepted for transfer. Patient will be covered with Levaquin and Flagyl given his Keflex allergy (severe rash). <Deanne Garcia - Last Filed: 02/24/21 10:40> ED HPI GENERAL MEDICAL PROBLEM - General Source of Information: Reports: Patient History Limitations: Reports: No Limitations - History of Present Illness INITIAL COMMENTS - FREE TEXT/NARRATIVE: HISTORY AND PHYSICAL: History of present illness: The patient is a 65-year-old male who presents to the emergency department with complaints of a fever and general malaise that started Sunday evening after eating pizza. The patient states he went to work on Sunday and started to have some right upper quad pain and had to leave work. He then started with a fever. His fever max has been 103. He has no appetite only eating applesauce or pudding for the last 2 days. He reports that his urine is very dark and concentrated. He does have a slight headache and some dizziness. He is nauseated but has not vomited. He states that he had tested positive for Covid around Thanksgiving time but had no symptoms. Patient denies any change in vision, syncope or near syncope. Denies any chest pain, back pain, shortness of breath or cough. Denies any vomiting, diarrhea, constipation or dysuria. Has not noted any blood in urine or stool. Review of systems: As per history of present illness and below otherwise all systems reviewed and negative. Past medical history: As per history of present illness and as reviewed below otherwise noncontributory. Surgical history: As per history of present illness and as reviewed below otherwise noncontributory. Social history: See social history for further information Family history: As per history of present illness and as reviewed below otherwise noncontributory. Physical exam: General: Well developed and well nourished. Alert and orientated x 3. Nontoxic in appearance and in no acute distress. Vital signs are stable and have been reviewed by me. Nursing notes were reviewed. HEENT: Atraumatic, normocephalic, pupils equal and reactive bilaterally, negative for conjunctival pallor or scleral icterus, mucous membranes moist, throat clear, neck supple, nontender, trachea midline. No drooling or trismus noted. No meningeal signs. No hot potato voice noted. Lungs: Clear to auscultation bilaterally. No wheezes, rales, or rhonchi. Chest nontender. Normal work of breathing, no accessory muscles used. Heart: S1S2, regular rate and rhythm without overt murmur, gallops, or rubs. No JVD. No peripheral edema Abdomen: Soft, nondistended, nontender. Normoactive bowel sounds. Negative for masses or costovertebral tenderness. Skin: Intact, warm, dry. No lesions or rashes noted. Hematologic: No petechiae or purpra. Mucosa appropriate color and normal nail bed color and refill. Extremities: Atraumatic, moves all extremities per self without difficulty or deficits, negative for cords or calf pain. Neurovascular unremarkable. Neuro: Awake, alert, oriented. Cranial nerves II through XII unremarkable. Cerebellum unremarkable. Motor and sensory unremarkable throughout. Exam nonfocal. Psychiatric: Mood and affect are appropriate. Normal thought process. Answering questions appropriately. Notes: *This patient was seen and evaluated during the 2019 SARS-CoV-2 novel coronavirus pandemic period. Community viral transmission is ongoing at time of this encounter and the emergency department is operating under pandemic response procedures. As above the patient presents to the emergency room with complaints of fever, general malaise, and decreased appetite. The patient has not been treating his fever but has taken Tylenol this morning. The patient has a history of colon cancer which required an ileostomy placement. The patient states that as of November this year he has been cancer free and has a follow-up in May. The patient is agreeable to blood work, UA, chest x-ray, IV fluids and Zofran for nausea. The patient CBC is unremarkable. The patient's CMP with a sodium is 133, chloride 97, carbon dioxide 20.8, BUN 25 and glucose is elevated at 133. Patient's albumin corrected anion gap suggest high anion gap acidosis at 16.2. This added to work-up due to increased LFTs and abdominal pelvis CT added. R eport to Dr. Corral. Diagnostics: CBC, CMP, UA, CXR 2V, EKG Therapeutics: IV fluids, Zofran Definitive disposition and diagnosis as appropriate pending reevaluation and review of above. Abdomen Pain Score (Numeric/FACES): 6 Past Medical History HEENT History: Reports: Other (See Below) Other HEENT History: wears glasses Cardiovascular History: Reports: Hypertension Other Cardiovascular History: hx of hypertension- no medications now Respiratory History: Reports: Other (See Below) Other Respiratory History: his thinks he has sleep apnea- he has not been tested Gastrointestinal History: Reports: Colon Polyp, Hemorrhoids Musculoskeletal History: Reports: Gout Neurological History: Reports: Concussion Endocrine/Metabolic History: Reports: Obesity/BMI 30+ Hematologic History: Reports: Anemia, Iron Deficiency Oncologic (Cancer) History: Reports: Colon Dermatologic History: Reports: Eczema - Infectious Disease History Infectious Disease History: Reports: None - Past Surgical History GI Surgical History: Reports: Appendectomy, Hernia, Abdominal, Other (See Below) Other GI Surgeries/Procedures: hx of Umbilical Hernia repair, history of colon cancer and recent resection 12/11 Oncologic Surgical History: Reports: Other (See Below) Other Oncologic Surgeries/Procedures: Colon resection 12/18/19 Social & Family History - Family History Family Medical History: Unobtainable - Caffeine Use Caffeine Use: Reports: None ED ROS GENERAL - Review of Systems Review Of Systems: Comprehensive ROS is negative, except as noted in HPI. ED EXAM, GI/ABD - Physical Exam Exam: See Below (See dictation) Course - Vital Signs Last Recorded V/S: Last Vital Signs Temp 99.1 F 02/24/21 03:07 Pulse 105 H 02/24/21 03:07 Resp 18 02/24/21 03:07 BP 125/74 02/24/21 03:07 Pulse Ox 94 L 02/24/21 03:07 - Orders/Labs/Meds Orders: Active Orders 24 hr Category Date Time Status Saline Lock Insert [OM.PC] Stat Oth 02/23/21 21:25 Ordered Labs: Laboratory Tests 02/23/21 02/23/21 02/23/21 Range/Units 21:11 21:11 21:11 WBC 9.42 (4.0-11.0) K/uL RBC 6.05 H (4.50-5.90) M/uL Hgb 18.4 H (13.0-17.0) g/dL Hct 51.5 H (38.0-50.0) % MCV 85.1 (80.0-98.0) fL MCH 30.4 (27.0-32.0) pg MCHC 35.7 (31.0-37.0) g/dL RDW Std Deviation 44.4 (28.0-62.0) fl RDW Coeff of Pippa 14 (11.0-15.0) % Plt Count 129 L (150-400) K/uL MPV 10.90 (7.40-12.00) fL Neut % (Auto) 91.4 H (48.0-80.0) % Lymph % (Auto) 2.7 L (16.0-40.0) % [place] % (Auto) 5.8 (0.0-15.0) % Eos % (Auto) 0.0 (0.0-7.0) % Baso % (Auto) 0.1 (0.0-1.5) % Neut # (Auto) 8.6 H (1.4-5.7) K/uL Lymph # (Auto) 0.3 L (0.6-2.4) K/uL [place] # (Auto) 0.6 (0.0-0.8) K/uL Eos # (Auto) 0.0 (0.0-0.7) K/uL Baso # (Auto) 0.0 (0.0-0.1) K/uL Nucleated RBC % 0.0 /100WBC Nucleated RBCs # 0 K/uL Sodium 133 L (136-148) mmol/L Potassium 3.7 (3.5-5.1) mmol/L Chloride 97 L (98-107) mmol/L Carbon Dioxide 20.8 L (21.0-32.0) mmol/L BUN 25 H (7.0-18.0) mg/dL Creatinine 1.3 (0.8-1.3) mg/dL Est Cr Clr Drug Dosing 50.44 mL/min Estimated GFR (MDRD) 55.2 ml/min Glucose 133 H (74-106) mg/dL Calcium 8.9 (8.5-10.1) mg/dL Total Bilirubin 8.2 H (0.2-1.0) mg/dL AST 216 H (15-37) IU/L ALT 553 H (14-63) IU/L Alkaline Phosphatase 153 H (46-116) U/L Total Protein 7.8 (6.4-8.2) g/dL Albumin 3.6 (3.4-5.0) g/dL Globulin 4.2 H (2.6-4.0) g/dL Albumin/Globulin Ratio 0.9 (0.9-1.6) Lipase 133 (73-393) U/L Urine Color Urine Appearance Urine pH (5.0-8.0) Ur Specific [place] (1.001-1.035) Urine Protein (NEGATIVE) mg/dL Urine Glucose (UA) (NEGATIVE) mg/dL Urine Ketones (NEGATIVE) mg/dL Urine Occult Blood (NEGATIVE) Urine Nitrite (NEGATIVE) Urine Bilirubin (NEGATIVE) Urine Ictotest Urine Urobilinogen (<2.0) EU/dL Ur Leukocyte Esterase (NEGATIVE) Urine RBC (0-2/HPF) Urine WBC (0-5/HPF) Ur Epithelial Cells (NONE-FEW) Urine Bacteria (NEGATIVE) Urine Mucus (NONE-MOD) SARS-CoV-2 RNA (AGUS) (NEGATIVE) 02/23/21 02/23/21 Range/Units 22:40 23:24 WBC (4.0-11.0) K/uL RBC (4.50-5.90) M/uL Hgb (13.0-17.0) g/dL Hct (38.0-50.0) % MCV (80.0-98.0) fL MCH (27.0-32.0) pg MCHC (31.0-37.0) g/dL RDW Std Deviation (28.0-62.0) fl RDW Coeff of [place]ipp[place] (11.0-15.0) % Plt Count (150-400) K/uL MPV (7.40-12.00) fL Neut % (Auto) (48.0-80.0) % Lymph % (Auto) (16.0-40.0) % [place] % (Auto) (0.0-15.0) % Eos % (Auto) (0.0-7.0) % Baso % (Auto) (0.0-1.5) % Neut # (Auto) (1.4-5.7) K/uL Lymph # (Auto) (0.6-2.4) K/uL [place] # (Auto) (0.0-0.8) K/uL Eos # (Auto) (0.0-0.7) K/uL Baso # (Auto) (0.0-0.1) K/uL Nucleated RBC % /100WBC Nucleated RBCs # K/uL Sodium (136-148) mmol/L Potassium (3.5-5.1) mmol/L Chloride (98-107) mmol/L Carbon Dioxide (21.0-32.0) mmol/L BUN (7.0-18.0) mg/dL Creatinine (0.8-1.3) mg/dL Est Cr Clr Drug Dosing mL/min Estimated GFR (MDRD) ml/min Glucose (74-106) mg/dL Calcium (8.5-10.1) mg/dL Total Bilirubin (0.2-1.0) mg/dL AST (15-37) IU/L ALT (14-63) IU/L Alkaline Phosphatase (46-116) U/L Total Protein (6.4-8.2) g/dL Albumin (3.4-5.0) g/dL Globulin (2.6-4.0) g/dL Albumin/Globulin Ratio (0.9-1.6) Lipase (73-393) U/L Urine Color YELLOW Urine Appearance CLEAR Urine pH 6.0 (5.0-8.0) Ur Specific [place] 1.020 (1.001-1.035) Urine Protein 30 H (NEGATIVE) mg/dL Urine Glucose (UA) NEGATIVE (NEGATIVE) mg/dL Urine Ketones 15 H (NEGATIVE) mg/dL Urine Occult Blood MODERATE H (NEGATIVE) Urine Nitrite NEGATIVE (NEGATIVE) Urine Bilirubin LARGE H (NEGATIVE) Urine Ictotest POSITIVE Urine Urobilinogen 1.0 (<2.0) EU/dL Ur Leukocyte Esterase NEGATIVE (NEGATIVE) Urine RBC 2-5 (0-2/HPF) Urine WBC 1-3 (0-5/HPF) Ur Epithelial Cells OCCASIONAL (NONE-FEW) Urine Bacteria FEW (NEGATIVE) Urine Mucus LIGHT (NONE-MOD) SARS-CoV-2 RNA (AGUS) NEGATIVE (NEGATIVE) Meds: Medications Discontinued Medications Generic Name Dose Route Start Last Admin Trade Name Freq PRN Reason Stop Dose Admin Sodium Chloride 1,000 mls @ 999 mls/hr 02/23/21 21:26 02/23/21 23:11 Normal Saline IV 02/23/21 22:26 999 mls/hr .BOLUS ONE Administration Levofloxacin/Dextrose 750 mg/ 150 mls @ 100 mls/hr 02/24/21 00:46 02/24/21 01:30 Premix IV 02/24/21 02:15 100 mls/hr ONETIME ONE Administration Metronidazole 500 mg/ Premix 100 mls @ 100 mls/hr 02/24/21 00:46 02/24/21 01:30 IV 02/24/21 01:45 100 mls/hr ONETIME ONE Administration Iopamidol 100 ml 02/23/21 23:26 02/23/21 23:27 Iopamidol 755 Mg/Ml 100 Ml Bottle IVPUSH 02/23/21 23:27 100 ml ONETIME ONE Administration Ketorolac Tromethamine 15 mg 02/24/21 01:30 02/24/21 01:41 Ketorolac 15 Mg/Ml Sdv IVPUSH 03/01/21 01:30 15 mg Q6H PRN Administration Fever Ondansetron HCl 4 mg 02/23/21 21:26 02/23/21 23:11 Ondansetron 4 Mg/2 Ml Sdv IVPUSH 02/23/21 21:27 4 mg ONETIME ONE Administration Sodium Chloride 10 ml 02/23/21 21:26 Sodium Chloride 0.9% 10 Ml Syringe FLUSH ASDIRECTED PRN Keep Vein Open Sodium Chloride 2.5 ml 02/23/21 21:26 Sodium Chloride 0.9% 2.5 Ml Syringe FLUSH ASDIRECTED PRN Keep Vein Open Sepsis Event Note (ED) - Focused Exam Vital Signs: Vital Signs Temp Pulse Resp BP Pulse Ox 02/24/21 03:07 99.1 F 105 H 18 125/74 94 L 02/24/21 02:00 89 20 150/83 H 94 L - My Orders Last 24 Hours: My Active Orders 02/23/21 21:25 Saline Lock Insert [OM.PC] Stat - Assessment/Plan Last 24 Hours: My Active Orders 02/23/21 21:25 Saline Lock Insert [OM.PC] Stat
--- NOTE | 2021-02-23 21:15 | PCM.EKG ---
#1 Interpretation EKG Date: 02/23/21 Time: 21:15 EKG Interpretation Comments: Sinus tachycardia rate of 108 mild rightward axis deviation Q waves inferiorly suggest old infarct no acute ischemia intervals unremarkable
[2021-02-23] MEDS ORDERED: Ondansetron 4 MG/2 ML SDV IVPUSH ONE (21:26)
[2021-02-23] MEDS ORDERED: Sodium Chloride 0.9% 10 ML Syringe FLUSH PRN (21:26)
[2021-02-23] MEDS ORDERED: Sodium Chloride 0.9% 2.5 ML Syringe FLUSH PRN (21:26)
[2021-02-23] MEDS ORDERED: Sodium Chloride 0.9% 1,000 ML IV ONE (21:26)
[2021-02-23 21:42] LABS: CARBON DIOXIDE,CO2 20.8 mmol/L (21.0-32.0); POTASSIUM,K 3.7 mmol/L (3.5-5.1)
--- NOTE | 2021-02-23 22:43 | CR ---
For Patients: As a result of the Cures Act, medical imaging exams and procedure reports are released immediately into your electronic medical record. You may view this report before your referring provider. If you have questions, please contact your health care provider. INDICATION: Fever. TECHNIQUE: PA and lateral. COMPARISON: 02/06/2020. FINDINGS: Lungs low in volume with crowded markings in the bases. No obvious infiltrate. No pleural effusion. Heart size and pulmonary vasculature within normal limits, allowing for the shallow inspiration. No significant bony abnormality. IMPRESSION: Negative chest, allowing for shallow inspiration. Dictated by Neftali Mccurdy MD @ 02/23/2021 10:43:[address] Neftali Mccurdy @ Feb 23 2021 10:43PM
[2021-02-23] MEDS ORDERED: Iopamidol 755 Mg/ML 100 ML Bottle IVPUSH ONE (23:26)
--- NOTE | 2021-02-24 00:22 | CT ---
For Patients: As a result of the Century Cures Act, medical imaging exams and procedure reports are released immediately into your electronic medical record. You may view this report before your referring provider. If you have questions, please contact your health care provider. INDICATION: Abdominal pain and elevated liver function tests. History of colon cancer with resection. TECHNIQUE: Volumetric helical scanning of the abdomen and pelvis was performed with 100 cc of Omnipaque 350 contrast material IV. Coronal and sagittal reconstructions were obtained. COMPARISON: Abdomen/pelvis CT of 12/07/2020. FINDINGS: On images 84 and 85 of series 201, a 3 mm stone is demonstrated in the distal common bile duct at the ampulla. This was not present on the previous examination. A number of small stones were demonstrated in the gallbladder previously and on today`s exam. There is no bile duct dilation. Fatty change is again demonstrated in the liver. A tiny right hepatic lobe cyst is noted. The liver is normal in size and shape. The spleen and pancreas are unremarkable. A 1.5 cm myelolipoma is again demonstrated in the right adrenal gland. Left adrenal is normal. Renal parenchymal and parapelvic cysts are again demonstrated bilaterally. Postop changes of colon resection are noted. The bowel is otherwise unremarkable except for a small hiatal hernia. No peritoneal implant or free fluid is evident. No lymphadenopathy is noted. The prostate is markedly enlarged. The lung bases are clear except for mild scarring in the lower lobe bases. The heart size is normal. IMPRESSION: 1. New 3 mm common bile duct stone at the ampulla without biliary ductal dilation. 2. Cholelithiasis. 3. Fatty liver and tiny liver cyst. 4. 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 5. Post colon resection. 6. Marked prostate enlargement. 7. Small hiatal hernia. Please note that all CT scans at this facility use dose modulation, iterative reconstruction, and/or weight-based dosing when appropriate to reduce radiation dose to as low as reasonably achievable. Dictated by Neftali Mccurdy MD @ 02/24/2021 12:19:[address] Neftali Mccurdy @ Feb 24 2021 12:19AM
[2021-02-24] MEDS ORDERED: Levofloxacin/Dextrose 5%-Water 750 MG in Premix Bag 1 BAG IV ONE (00:46)
[2021-02-24] MEDS ORDERED: metroNIDAZOLE/Normal Saline 500 MG in Premix Bag 1 BAG IV ONE (00:46)
[2021-02-24] MEDS ORDERED: Ketorolac 15 MG/ML SDV IVPUSH PRN (01:30)
== END 2021-02-24 03:17 ==
LOC: MW.ED 20:53
DX: K80.50 Calculus of bile duct without cholangitis or cholecystitis without obstruction (principal); I10 Essential (primary) hypertension; E66.9 Obesity, unspecified; Z68.33 Body mass index [BMI] 33.0-33.9, adult; Z88.1 Allergy status to other antibiotic agents; Z20.822 Contact with and (suspected) exposure to COVID-19
CPT/HCPCS: 36415; 71046; 74177; 80053; 81001; 83690; 85025; 87635; 93005; 96365; 96367; 96375; 99285; J1885; J1956; J2405; J3490; J7030; Q9967; U0002

== ENCOUNTER 2022-01-16 06:28 | Day surgery (SDC) | payer OTHER, MEDICARE ==
[~2022-01-16 06:28] MED LIST changes: +Clindamycin Phosphate in D5W 600 MG in Premix Bag 1 BAG IV ONE; +Sodium Chloride 0.9% 10 ML Syringe FLUSH PRN; +Sodium Chloride 0.9% 2.5 ML Syringe FLUSH PRN; +Sodium Chloride 0.9% 20 ML SDV IV PRN
[2022-01-16] MEDS ORDERED: Dexmedetomidine 200 MCG/2 ML SDV ONE ×2 (06:59→07:00)
[2022-01-16] MEDS ORDERED: Propofol 200 MG/20 ML SDV ONE (07:00)
[2022-01-16] MEDS ORDERED: Lidocaine 1% 5 ML VIAL ONE ×2 (07:00→07:17)
[2022-01-16] MEDS ORDERED: Water For Injection, Sterile 20 ML ONE (07:00)
[2022-01-16] MEDS ORDERED: fentaNYL 100 MCG/2 ML SDV ONE (07:00)
[2022-01-16] MEDS ORDERED: Metoclopramide 10 MG/2 ML SDV IVPUSH PRN (07:13)
[2022-01-16] MEDS ORDERED: Naloxone 0.4 MG/ML SDV IVPUSH PRN (07:13)
[2022-01-16] MEDS ORDERED: Albuterol 0.083% 2.5 MG/3 ML Neb Soln NEB PRN (07:13)
[2022-01-16] MEDS ORDERED: HYDROmorphone 1 MG/ML Syringe IVPUSH PRN (07:13)
[2022-01-16] MEDS ORDERED: fentaNYL 100 MCG/2 ML SDV IVPUSH PRN (07:13)
[2022-01-16] MEDS ORDERED: Ondansetron 4 MG/2 ML SDV IVPUSH PRN (07:13)
[2022-01-16] MEDS ORDERED: Bupivacaine 0.5% 10 ML SDV ONE (07:16)
[2022-01-16] MEDS ORDERED: Iopamidol 408 MG/ML 20 ML SDV ONE (07:17)
[2022-01-16] MEDS ORDERED: Heparin Sodium 100 Units/ML 3 ML Syringe ONE (07:17)
[2022-01-16] MEDS ORDERED: Octyl 2-Cyanoacrylate 1 Tube ONE (07:17)
[2022-01-16] MEDS ORDERED: Clindamycin Phosphate in D5W 50 ML ONE (08:15)
[2022-01-16] MEDS ORDERED: Dexamethasone 4 MG/ML 5 ML MDV ONE (08:21)
[2022-01-16] MEDS ORDERED: Ondansetron 4 MG/2 ML SDV ONE (08:39)
== END 2022-01-16 10:16 | disposition home or self-care (01) ==
LOC: MW.SDS 06:28
PROVIDERS: ATTEND Surgery
DX: C43.30 Malignant melanoma of unspecified part of face (principal); C77.9 Secondary and unspecified malignant neoplasm of lymph node, unspecified; I10 Essential (primary) hypertension; Z88.8 Allergy status to other drugs, medicaments and biological substances; Z79.899 Other long term (current) drug therapy; Z90.49 Acquired absence of other specified parts of digestive tract; Z98.890 Other specified postprocedural states
CPT/HCPCS: 36561; 71045; A9270; J1100; J1642; J2370; J2405; J2704; J3490; J7120; 00532; J3010; Q9966

== ENCOUNTER 2024-02-05 20:02 | Observation (INO) | payer MEDICARE, BC ==
[2024-02-05] MEDS: Sodium Chloride 0.9% 10 ML Syringe FLUSH PRN (22:03)
[2024-02-05] MEDS: Sodium Chloride 0.9% 1,000 ML IV ONE (22:03)
[2024-02-05] MEDS: Ondansetron 4 MG/2 ML SDV IVPUSH ONE (22:03)
[2024-02-05] MEDS: Sodium Chloride 0.9% 2.5 ML Syringe FLUSH PRN (22:03)
[2024-02-05] MEDS: Piperacillin/Tazobactam 4.5 GM in Sodium Chloride 0.9% 100 ML IV ONE (22:03)
[2024-02-05 22:09] LABS: BASOPHILS ABSOLUTE AUTO 0.01 K/uL (0.00-0.20); BASOPHILS PERCENT AUTO 0.3 % (0.0-1.0); HEMATOCRIT 43.4 % (42.0-52.0); HEMOGLOBIN 14.9 g/dL (14.0-18.0); IMMATURE GRAN ABSOLUTE AUTO 0.03 K/uL (0.00-0.05); IMMATURE GRAN PERCENT AUTO 0.8 % (0.0-0.4); LYMPHOCYTES PERCENT AUTO 8.3 % (24.0-44.0); MEAN CORPUSCULAR HEMOGLOBIN 29.6 pg (28.0-32.0); MEAN CORPUSCULAR HGB CONC 34.3 g/dL (32.0-36.0); MEAN CORPUSCULAR VOLUME 86.1 fL (83.0-99.0); MEAN PLATELET VOLUME 9.1 fL (9.4-12.4); MONOCYTES ABSOLUTE AUTO 0.51 K/uL (0.00-0.80); MONOCYTES PERCENT AUTO 14.1 % (0.0-8.0); NEUTROPHILS ABSOLUTE AUTO 2.76 K/uL (1.80-7.70); NEUTROPHILS PERCENT AUTO 76.5 % (41.0-71.0); PLATELET COUNT,PLT 123 K/uL (150-400); RED BLOOD CELL COUNT 5.04 M/uL (4.52-5.90); WHITE BLOOD CELL COUNT,WBC 3.61 K/uL (3.9-11.3)
[2024-02-05 22:26] LABS: ALANINE AMINOTRANSFERASE,ALT 27 IU/L (14-63); ALKALINE PHOSPHATASE 70 U/L (46-116); ASPARTATE AMNIOTRANSFERASE,AST 29 IU/L (15-37); BILIRUBIN TOTAL 0.7 mg/dL (0.2-1.0); BLOOD UREA NITROGEN,BUN 19 mg/dL (7.0-18.0); CALCIUM 8.2 mg/dL (8.5-10.1); CARBON DIOXIDE,CO2 25.2 mmol/L (21.0-32.0); CHLORIDE,CL 99 mmol/L (98-107); CREATININE 1.3 mg/dL (0.8-1.3); ESTIMATED GFR 59 mL/min (>60); GLUCOSE RANDOM 99 mg/dL (74-106); LIPASE 56 U/L (16-77); POTASSIUM,K 3.9 mmol/L (3.5-5.1); PROTEIN TOTAL,TP 5.9 g/dL (6.4-8.2); SODIUM,NA 134 mmol/L (136-148)
[2024-02-05 22:28] LABS: LACTIC ACID 0.7 mmol/L (0.4-2.0)
[2024-02-05 22:30] LABS: APPEARANCE,URINE CLEAR; BILIRUBIN,URINE NEGATIVE (NEGATIVE); COLOR,URINE YELLOW; GLUCOSE,URINE NEGATIVE (NEGATIVE); KETONES,URINE NEGATIVE (NEGATIVE); LEUKOCYTE ESTERASE,URINE NEGATIVE (NEGATIVE); NITRITE,URINE NEGATIVE (NEGATIVE); OCCULT BLOOD,URINE NEGATIVE (NEGATIVE); PROTEIN,URINE NEGATIVE (NEGATIVE); UROBILINOGEN,URINE 0.2 EU/dL (<2.0)
[2024-02-05] MEDS: Iopamidol 755 MG/ML 500 ML Multipack Bottle IVPUSH ONE (23:19)
[2024-02-06] MEDS: Levofloxacin/Dextrose 5%-Water 750 MG in Premix Bag 1 BAG IV SCH (03:34)
[2024-02-06 06:58] LABS: BASOPHILS ABSOLUTE AUTO 0.01 K/uL (0.00-0.20); BASOPHILS PERCENT AUTO 0.3 % (0.0-1.0); HEMATOCRIT 43.1 % (42.0-52.0); IMMATURE GRAN ABSOLUTE AUTO 0.02 K/uL (0.00-0.05); IMMATURE GRAN PERCENT AUTO 0.6 % (0.0-0.4); LYMPHOCYTES ABSOLUTE AUTO 0.46 K/uL (1.00-4.80); LYMPHOCYTES PERCENT AUTO 14.2 % (24.0-44.0); MEAN CORPUSCULAR HEMOGLOBIN 29.8 pg (28.0-32.0); MEAN CORPUSCULAR HGB CONC 34.8 g/dL (32.0-36.0); MEAN CORPUSCULAR VOLUME 85.7 fL (83.0-99.0); MEAN PLATELET VOLUME 9.9 fL (9.4-12.4); MONOCYTES PERCENT AUTO 12.3 % (0.0-8.0); NEUTROPHILS ABSOLUTE AUTO 2.36 K/uL (1.80-7.70); NEUTROPHILS PERCENT AUTO 72.6 % (41.0-71.0); PLATELET COUNT,PLT 101 K/uL (150-400); RED BLOOD CELL COUNT 5.03 M/uL (4.52-5.90); WHITE BLOOD CELL COUNT,WBC 3.25 K/uL (3.9-11.3)
[2024-02-06 07:12] LABS: CARBON DIOXIDE,CO2 26.9 mmol/L (21.0-32.0); CREATININE 1.1 mg/dL (0.8-1.3); EST CRCL DRUG DOSING (CG) 57.19 mL/min; POTASSIUM,K 3.8 mmol/L (3.5-5.1)
[2024-02-06] MEDS ORDERED: Ondansetron 4 MG/2 ML SDV IVPUSH PRN (08:05)
[2024-02-06] MEDS: Acetaminophen 325 MG Tab PO PRN (08:48)
[2024-02-06] MEDS: Pantoprazole 40 MG in Sodium Chloride 0.9% 10 ML IVPUSH SCH (08:49)
[2024-02-06] MEDS: Enoxaparin 40 MG/0.4 ML Syringe SUBCUT SCH (08:49)
[2024-02-06] MEDS: predniSONE 10 MG Tab PO SCH (20:54)
== END 2024-02-07 19:00 | disposition home or self-care (01) ==
LOC: MW.ED 20:02 → MW.MS 02-06 01:07
PROVIDERS: ADMIT Internal Medicine; ATTEND Internal Medicine
DX: J18.9 Pneumonia, unspecified organism (principal); I10 Essential (primary) hypertension; G47.33 Obstructive sleep apnea (adult) (pediatric); E66.9 Obesity, unspecified; Z79.899 Other long term (current) drug therapy; Z91.048 Other nonmedicinal substance allergy status
CPT/HCPCS: 36415; 71045; 71260; 74177; 80048; 80053; 81003; 83605; 83690; 85025; 96361; 96365; 96375; 99285; A9270; C9113; J1642; J1650; J1956; J2405; J2543; J3490; J7030; Q9967; 96366; 96367; 96372; 96376; 99222; 99239; G0378

== ENCOUNTER 2024-04-30 15:30 | Emergency (ER) | payer MEDICARE, BC ==
[2024-04-30 16:38] LABS: BASOPHILS ABSOLUTE AUTO 0.04 K/uL (0.00-0.20); BASOPHILS PERCENT AUTO 0.4 % (0.0-1.0); EOSINOPHILS ABSOLUTE AUTO 0.06 K/uL (0.00-0.45); EOSINOPHILS PERCENT AUTO 0.5 % (0.0-6.0); HEMATOCRIT 53.5 % (42.0-52.0); HEMOGLOBIN 18.3 g/dL (14.0-18.0); IMMATURE GRAN ABSOLUTE AUTO 0.08 K/uL (0.00-0.05); IMMATURE GRAN PERCENT AUTO 0.7 % (0.0-0.4); LYMPHOCYTES PERCENT AUTO 10.8 % (24.0-44.0); MEAN CORPUSCULAR HEMOGLOBIN 28.6 pg (28.0-32.0); MEAN CORPUSCULAR HGB CONC 34.2 g/dL (32.0-36.0); MEAN CORPUSCULAR VOLUME 83.6 fL (83.0-99.0); MEAN PLATELET VOLUME 9.4 fL (9.4-12.4); MONOCYTES ABSOLUTE AUTO 1.23 K/uL (0.00-0.80); MONOCYTES PERCENT AUTO 11.1 % (0.0-8.0); NEUTROPHILS ABSOLUTE AUTO 8.51 K/uL (1.80-7.70); NEUTROPHILS PERCENT AUTO 76.5 % (41.0-71.0); PLATELET COUNT,PLT 216 K/uL (150-400); WHITE BLOOD CELL COUNT,WBC 11.12 K/uL (3.9-11.3)
[2024-04-30] MEDS: Sodium Chloride 0.9% 1,000 ML IV ONE ×2 (16:45→18:25)
[2024-04-30] MEDS: Ondansetron 4 MG/2 ML SDV IVPUSH ONE (16:47)
[2024-04-30] MEDS: Famotidine 20 MG/2 ML SDV IVPUSH ONE (16:49)
[2024-04-30] MEDS: fentaNYL 50 MCG/ML SDV IV ONE (16:52)
[2024-04-30 17:03] LABS: A/G RATIO 1.2 (0.9-1.6); ALBUMIN 4.1 g/dL (3.4-5.0); BILIRUBIN TOTAL 0.8 mg/dL (0.2-1.0); CALCIUM 9.8 mg/dL (8.5-10.1); CARBON DIOXIDE,CO2 26.8 mmol/L (21.0-32.0); CREATININE 1.6 mg/dL (0.8-1.3); EST CRCL DRUG DOSING (CG) 43.57 mL/min; POTASSIUM,K 3.8 mmol/L (3.5-5.1); PROTEIN TOTAL,TP 7.4 g/dL (6.4-8.2)
[2024-04-30] MEDS: Sodium Chloride 0.9% 2.5 ML Syringe FLUSH PRN (18:25)
[2024-04-30] MEDS: Sodium Chloride 0.9% 10 ML Syringe FLUSH PRN (18:25)
== END 2024-04-30 19:35 | disposition home or self-care (01) ==
LOC: MW.ED 15:30
DX: R19.7 Diarrhea, unspecified (principal); I10 Essential (primary) hypertension; E66.9 Obesity, unspecified; Z90.49 Acquired absence of other specified parts of digestive tract; Z79.899 Other long term (current) drug therapy; Z91.048 Other nonmedicinal substance allergy status; Z88.1 Allergy status to other antibiotic agents; Z68.34 Body mass index [BMI] 34.0-34.9, adult; Z75.8 Other problems related to medical facilities and other health care
CPT/HCPCS: 36415; 74176; 80053; 83690; 85025; 96361; 96374; 96375; 99285; J1642; J2405; J3010; J3490; J7030; 99284

== ENCOUNTER 2024-06-07 13:37 | Emergency (ER) | payer MEDICARE, BC ==
[2024-06-07] MEDS ORDERED: Sodium Chloride 0.9% 10 ML Syringe FLUSH PRN (13:39)
[2024-06-07] MEDS ORDERED: Albuterol/Ipratropium 3.0-0.5 MG/3 ML Neb Soln NEB ONE (14:07)
[2024-06-07] MEDS ORDERED: Azithromycin 500 MG in Sodium Chloride 0.9% 250 ML IV ONE (14:07)
[2024-06-07 14:40] LABS: BASOPHILS ABSOLUTE AUTO 0.03 K/uL (0.00-0.20); BASOPHILS PERCENT AUTO 0.3 % (0.0-1.0); EOSINOPHILS ABSOLUTE AUTO 0.01 K/uL (0.00-0.45); EOSINOPHILS PERCENT AUTO 0.1 % (0.0-6.0); HEMATOCRIT 48.3 % (42.0-52.0); HEMOGLOBIN 16.2 g/dL (14.0-18.0); IMMATURE GRAN ABSOLUTE AUTO 0.08 K/uL (0.00-0.05); IMMATURE GRAN PERCENT AUTO 0.7 % (0.0-0.4); LYMPHOCYTES ABSOLUTE AUTO 0.63 K/uL (1.00-4.80); LYMPHOCYTES PERCENT AUTO 5.6 % (24.0-44.0); MEAN CORPUSCULAR HEMOGLOBIN 28.5 pg (28.0-32.0); MEAN CORPUSCULAR HGB CONC 33.5 g/dL (32.0-36.0); MEAN PLATELET VOLUME 9.6 fL (9.4-12.4); MONOCYTES ABSOLUTE AUTO 0.61 K/uL (0.00-0.80); MONOCYTES PERCENT AUTO 5.4 % (0.0-8.0); NEUTROPHILS ABSOLUTE AUTO 9.93 K/uL (1.80-7.70); NEUTROPHILS PERCENT AUTO 87.9 % (41.0-71.0); PLATELET COUNT,PLT 196 K/uL (150-400); RED BLOOD CELL COUNT 5.68 M/uL (4.52-5.90); WHITE BLOOD CELL COUNT,WBC 11.29 K/uL (3.9-11.3)
[2024-06-07 14:52] LABS: APPEARANCE,URINE CLEAR; BILIRUBIN,URINE NEGATIVE (NEGATIVE); COLOR,URINE YELLOW; GLUCOSE,URINE NEGATIVE (NEGATIVE); KETONES,URINE NEGATIVE (NEGATIVE); LEUKOCYTE ESTERASE,URINE NEGATIVE (NEGATIVE); NITRITE,URINE NEGATIVE (NEGATIVE); OCCULT BLOOD,URINE NEGATIVE (NEGATIVE); PH,URINE 6.5 (5.0-8.0); PROTEIN,URINE NEGATIVE (NEGATIVE); UROBILINOGEN,URINE 0.2 EU/dL (<2.0)
[2024-06-07 15:02] LABS: AMPHETAMINES SCREEN, URINE NEGATIVE (CUTOFF=500); BARBITURATE SCREEN,URINE NEGATIVE (CUTOFF=200); BENZODIAZEPINES SCREEN,URINE NEGATIVE (CUTOFF=150); BUPRENORPHINE SCREEN,URINE NEGATIVE (CUTOFF=10); METHADONE SCREEN, URINE NEGATIVE (CUTOFF=200); METHAMPHETAMINES SCREEN, URINE NEGATIVE (CUTOFF=500); OXYCODONE SCREEN,URINE NEGATIVE (CUT0FF=100); PCP SCREEN,URINE NEGATIVE (CUTOFF=25); THC SCREEN,URINE 20 NG/ML NEGATIVE (CUTOFF=50)
[2024-06-07] MEDS: Sodium Chloride 0.9% 1,000 ML IV ONE (15:10)
[2024-06-07 15:16] LABS: A/G RATIO 1.3 (0.9-1.6); ACETAMINOPHEN <2.0 ug/mL; ALANINE AMINOTRANSFERASE,ALT 35 IU/L (14-63); ALBUMIN 3.7 g/dL (3.4-5.0); ALKALINE PHOSPHATASE 64 U/L (46-116); ASPARTATE AMNIOTRANSFERASE,AST 25 IU/L (15-37); BILIRUBIN TOTAL 0.6 mg/dL (0.2-1.0); BLOOD UREA NITROGEN,BUN 28 mg/dL (7.0-18.0); CALCIUM 8.8 mg/dL (8.5-10.1); CARBON DIOXIDE,CO2 27.9 mmol/L (21.0-32.0); CHLORIDE,CL 104 mmol/L (98-107); CREATININE 1.4 mg/dL (0.8-1.3); EST CRCL DRUG DOSING (CG) 44.94 mL/min; GLUCOSE RANDOM 104 mg/dL (74-106); LIPASE 64 U/L (16-77); MAGNESIUM 2.2 mg/dL (1.8-2.4); POTASSIUM,K 3.9 mmol/L (3.5-5.1); PRO B-TYPE NATRIUR PEPT,BNPPRO 128 pg/mL (0-125); PROTEIN TOTAL,TP 6.6 g/dL (6.4-8.2); SALICYLATE 0.3 mg/dL (0.0-20.0); SODIUM,NA 143 mmol/L (136-148)
[2024-06-07 15:17] LABS: ESTIMATED GFR 54 mL/min (>60); ETHANOL BLOOD MEDICAL < 3.0 mg/dL
[2024-06-07] MEDS: Iopamidol 755 MG/ML 500 ML Multipack Bottle IVPUSH STA (16:30)
[2024-06-07 16:31] LABS: INR 1.01 (0.86-1.11)
[2024-06-07] MEDS: Dexamethasone 4 MG/ML SDV IVPUSH ONE ×2 (16:31→16:57)
== END 2024-06-07 19:48 ==
LOC: MW.ED 13:37
DX: R41.82 Altered mental status, unspecified (principal); R42 Dizziness and giddiness; H60.501 Unspecified acute noninfective otitis externa, right ear; C78.02 Secondary malignant neoplasm of left lung; C79.31 Secondary malignant neoplasm of brain; C78.7 Secondary malignant neoplasm of liver and intrahepatic bile duct; C43.9 Malignant melanoma of skin, unspecified; R26.0 Ataxic gait; G93.6 Cerebral edema; Z92.21 Personal history of antineoplastic chemotherapy; I10 Essential (primary) hypertension; E66.9 Obesity, unspecified; Z79.899 Other long term (current) drug therapy; Z88.1 Allergy status to other antibiotic agents; Z91.048 Other nonmedicinal substance allergy status
CPT/HCPCS: 36415; 70450; 70496; 70498; 71260; 74177; 80053; 80143; 80179; 80305; 80307; 81003; 82947; 83690; 83735; 83880; 84484; 85025; 85610; 93005; 96361; 96365; 96375; 99285; J1100; J1953; J7030; J7060; Q9967; 93010

== ENCOUNTER 2024-07-16 16:23 | Inpatient (IN) | payer MEDICARE, BC ==
[2024-07-16 18:49] LABS: HEMATOCRIT 51.7 % (42.0-52.0); HEMOGLOBIN 17.3 g/dL (14.0-18.0); MEAN CORPUSCULAR HEMOGLOBIN 28.9 pg (28.0-32.0); MEAN CORPUSCULAR HGB CONC 33.5 g/dL (32.0-36.0); MEAN CORPUSCULAR VOLUME 86.5 fL (83.0-99.0); PLATELET COUNT,PLT 70 K/uL (150-400); RED BLOOD CELL COUNT 5.98 M/uL (4.52-5.90)
[2024-07-16 19:13] LABS: A/G RATIO 1.2 (0.9-1.6); BILIRUBIN TOTAL 1.1 mg/dL (0.2-1.0); CALCIUM 8.9 mg/dL (8.5-10.1); CREATININE 1.1 mg/dL (0.8-1.3); EST CRCL DRUG DOSING (CG) 63.38 mL/min; POTASSIUM,K 3.7 mmol/L (3.5-5.1); PROTEIN TOTAL,TP 5.5 g/dL (6.4-8.2)
[2024-07-16 19:18] LABS: MAGNESIUM 1.8 mg/dL (1.8-2.4)
[2024-07-16 19:25] LABS: BAND PERCENT MAN 2 %; LYMPHOCYTES ABSOLUTE MAN 0.19 K/uL (1.00-4.80); LYMPHOCYTES PERCENT MAN 4 % (24-44); SEG NEUTROPHILS ABSOLUTE MAN 4.27 K/uL (1.80-7.70); SEG NEUTROPHILS PERCENT MAN 89 % (41-71)
[2024-07-16 19:26] LABS: MONOCYTES ABSOLUTE MAN 0.24 K/uL (0.00-0.80); MONOCYTES PERCENT MAN 5 % (0-8)
[2024-07-16] MEDS: Sodium Chloride 0.9% 1,000 ML IV STA (20:08)
[2024-07-16] MEDS: Acetaminophen 500 MG Tab PO STA (20:53)
[2024-07-16] MEDS: Levofloxacin/Dextrose 5%-Water 750 MG in Premix Bag 1 BAG IV STA (21:33)
[2024-07-16 21:50] LABS: LACTIC ACID 1.4 mmol/L (0.4-2.0)
[2024-07-16 22:25] LABS: APPEARANCE,URINE CLEAR; BILIRUBIN,URINE NEGATIVE (NEGATIVE); COLOR,URINE YELLOW; GLUCOSE,URINE NEGATIVE (NEGATIVE); KETONES,URINE NEGATIVE (NEGATIVE); LEUKOCYTE ESTERASE,URINE NEGATIVE (NEGATIVE); NITRITE,URINE NEGATIVE (NEGATIVE); OCCULT BLOOD,URINE TRACE-INTACT (NEGATIVE); PROTEIN,URINE NEGATIVE (NEGATIVE); UROBILINOGEN,URINE 0.2 EU/dL (<2.0)
[2024-07-16 22:31] LABS: BACTERIA,URINE RARE (NEGATIVE); EPITHELIAL CELLS,URINE RARE (NONE-FEW); RBC,URINE 0-3 (0-2/HPF); WBC,URINE NONE SEEN (0-5/HPF)
[2024-07-16] MEDS ORDERED: Albuterol/Ipratropium 3.0-0.5 MG/3 ML Neb Soln NEB PRN (23:47)
[2024-07-16] MEDS ORDERED: Ondansetron 4 MG/2 ML SDV IVPUSH PRN (23:48)
[2024-07-17 06:27] LABS: HEMATOCRIT 50.3 % (42.0-52.0); HEMOGLOBIN 17.3 g/dL (14.0-18.0); MEAN CORPUSCULAR HEMOGLOBIN 29.1 pg (28.0-32.0); MEAN CORPUSCULAR HGB CONC 34.4 g/dL (32.0-36.0); MEAN CORPUSCULAR VOLUME 84.7 fL (83.0-99.0); MEAN PLATELET VOLUME 9.5 fL (9.4-12.4); PLATELET COUNT,PLT 71 K/uL (150-400); RED BLOOD CELL COUNT 5.94 M/uL (4.52-5.90); WHITE BLOOD CELL COUNT,WBC 4.04 K/uL (3.9-11.3)
[2024-07-17 07:06] LABS: A/G RATIO 0.9 (0.9-1.6); ALBUMIN 2.7 g/dL (3.4-5.0); BILIRUBIN TOTAL 1.3 mg/dL (0.2-1.0); CALCIUM 8.2 mg/dL (8.5-10.1); CARBON DIOXIDE,CO2 22.5 mmol/L (21.0-32.0); CREATININE 1.1 mg/dL (0.8-1.3); EST CRCL DRUG DOSING (CG) 57.19 mL/min; POTASSIUM,K 3.5 mmol/L (3.5-5.1); PROTEIN TOTAL,TP 5.8 g/dL (6.4-8.2)
[2024-07-17] MEDS: Piperacillin/Tazobactam 4.5 GM in Sodium Chloride 0.9% 100 ML IV ONE (08:49)
[2024-07-17] MEDS: levETIRAcetam 500 MG Tab PO SCH (08:49)
[2024-07-17 09:07] LABS: BAND ABSOLUTE MAN 0.85; BAND PERCENT MAN 21 %; BASOPHILS ABSOLUTE MAN 0.08 K/uL (0.00-0.20); BASOPHILS PERCENT MAN 2 % (0-1); LYMPHOCYTES ABSOLUTE MAN 0.16 K/uL (1.00-4.80); LYMPHOCYTES PERCENT MAN 4 % (24-44); METAMYELOCYTE ABSOLUTE MAN 0.04; METAMYELOCYTE PERCENT MAN 1 %; MONOCYTES ABSOLUTE MAN 0.12 K/uL (0.00-0.80); MONOCYTES PERCENT MAN 3 % (0-8); SEG NEUTROPHILS ABSOLUTE MAN 2.79 K/uL (1.80-7.70); SEG NEUTROPHILS PERCENT MAN 69 % (41-71)
[2024-07-17 09:50] LABS: LACTIC ACID 1.6 mmol/L (0.4-2.0)
[2024-07-17 10:41] LABS: CORONAVIRUS COVID-19 NAA NEGATIVE (NEGATIVE); INFLUENZA A NAA NEGATIVE (NEGATIVE); INFLUENZA B NAA NEGATIVE (NEGATIVE); RESPIRATORY SYNCYTIAL VIR NAA NEGATIVE (NEGATIVE)
[2024-07-17] MEDS ORDERED: Sodium Chloride 0.9% 2.5 ML Syringe FLUSH PRN (11:57)
[2024-07-17] MEDS ORDERED: Sodium Chloride 0.9% 10 ML Syringe FLUSH PRN (11:57)
[2024-07-17] MEDS: methylPREDNISolone Sodium Succinate 125 MG/2 ML SDV IVPUSH SCH (13:02)
[2024-07-17] MEDS: Furosemide 40 MG/4 ML VIAL IVPUSH ONE (13:57)
[2024-07-17] MEDS ORDERED: Sodium Chloride 0.9% 1,000 ML IV SCH (14:15)
[2024-07-17] MEDS: Sodium Chloride 0.9% 1,000 ML IV ONE (14:43)
[2024-07-17] MEDS: Piperacillin/Tazobactam 4.5 GM in Sodium Chloride 0.9% 100 ML IV SCH (16:26)
[2024-07-17] MEDS: Levofloxacin/Dextrose 5%-Water 750 MG in Premix Bag 1 BAG IV SCH (20:59)
[2024-07-18 05:07] LABS: BORDETELLA PARAPERT IS1001 Not Detected (Not Detected)
[2024-07-18 06:04] LABS: HEMATOCRIT 44.8 % (42.0-52.0); HEMOGLOBIN 15.4 g/dL (14.0-18.0); MEAN CORPUSCULAR HGB CONC 34.4 g/dL (32.0-36.0); MEAN CORPUSCULAR VOLUME 84.4 fL (83.0-99.0); MEAN PLATELET VOLUME 10.4 fL (9.4-12.4); RED BLOOD CELL COUNT 5.31 M/uL (4.52-5.90); WHITE BLOOD CELL COUNT,WBC 4.81 K/uL (3.9-11.3)
[2024-07-18 06:38] LABS: A/G RATIO 0.6 (0.9-1.6); ALBUMIN 2.1 g/dL (3.4-5.0); BILIRUBIN TOTAL 0.9 mg/dL (0.2-1.0); CALCIUM 7.7 mg/dL (8.5-10.1); CARBON DIOXIDE,CO2 25.2 mmol/L (21.0-32.0); EST CRCL DRUG DOSING (CG) 62.91 mL/min; POTASSIUM,K 3.5 mmol/L (3.5-5.1); PROTEIN TOTAL,TP 5.4 g/dL (6.4-8.2)
[2024-07-18 09:50] LABS: BAND PERCENT MAN 25 %; LYMPHOCYTES ABSOLUTE MAN 0.05 K/uL (1.00-4.80); LYMPHOCYTES PERCENT MAN 1 % (24-44); METAMYELOCYTE ABSOLUTE MAN 0.29; METAMYELOCYTE PERCENT MAN 6 %; PLATELET COUNT,PLT 117 K/uL (150-400); SEG NEUTROPHILS ABSOLUTE MAN 3.27 K/uL (1.80-7.70); SEG NEUTROPHILS PERCENT MAN 68 % (41-71)
[2024-07-19 06:28] LABS: HEMATOCRIT 42.8 % (42.0-52.0); HEMOGLOBIN 14.3 g/dL (14.0-18.0); IMMATURE GRAN ABSOLUTE AUTO 0.08 K/uL (0.00-0.05); IMMATURE GRAN PERCENT AUTO 1.3 % (0.0-0.4); LYMPHOCYTES ABSOLUTE AUTO 0.15 K/uL (1.00-4.80); LYMPHOCYTES PERCENT AUTO 2.5 % (24.0-44.0); MEAN CORPUSCULAR HEMOGLOBIN 28.3 pg (28.0-32.0); MEAN CORPUSCULAR HGB CONC 33.4 g/dL (32.0-36.0); MEAN CORPUSCULAR VOLUME 84.8 fL (83.0-99.0); MEAN PLATELET VOLUME 10.2 fL (9.4-12.4); MONOCYTES ABSOLUTE AUTO 0.22 K/uL (0.00-0.80); MONOCYTES PERCENT AUTO 3.7 % (0.0-8.0); NEUTROPHILS PERCENT AUTO 92.5 % (41.0-71.0); PLATELET COUNT,PLT 103 K/uL (150-400); RED BLOOD CELL COUNT 5.05 M/uL (4.52-5.90); WHITE BLOOD CELL COUNT,WBC 5.95 K/uL (3.9-11.3)
[2024-07-19 06:44] LABS: CALCIUM 8.3 mg/dL (8.5-10.1); CARBON DIOXIDE,CO2 28.2 mmol/L (21.0-32.0); EST CRCL DRUG DOSING (CG) 62.91 mL/min; POTASSIUM,K 3.5 mmol/L (3.5-5.1)
[2024-07-19] MEDS: Acetaminophen 325 MG Tab PO PRN (09:56)
[2024-07-20 07:44] LABS: BASOPHILS ABSOLUTE AUTO 0.01 K/uL (0.00-0.20); BASOPHILS PERCENT AUTO 0.2 % (0.0-1.0); HEMATOCRIT 39.9 % (42.0-52.0); HEMOGLOBIN 13.7 g/dL (14.0-18.0); IMMATURE GRAN ABSOLUTE AUTO 0.05 K/uL (0.00-0.05); LYMPHOCYTES ABSOLUTE AUTO 0.21 K/uL (1.00-4.80); LYMPHOCYTES PERCENT AUTO 4.4 % (24.0-44.0); MEAN CORPUSCULAR HEMOGLOBIN 29.1 pg (28.0-32.0); MEAN CORPUSCULAR HGB CONC 34.3 g/dL (32.0-36.0); MEAN CORPUSCULAR VOLUME 84.9 fL (83.0-99.0); MEAN PLATELET VOLUME 9.7 fL (9.4-12.4); MONOCYTES ABSOLUTE AUTO 0.25 K/uL (0.00-0.80); MONOCYTES PERCENT AUTO 5.2 % (0.0-8.0); NEUTROPHILS ABSOLUTE AUTO 4.28 K/uL (1.80-7.70); NEUTROPHILS PERCENT AUTO 89.2 % (41.0-71.0); PLATELET COUNT,PLT 109 K/uL (150-400)
[2024-07-20 08:02] LABS: CALCIUM 8.3 mg/dL (8.5-10.1); CARBON DIOXIDE,CO2 29.2 mmol/L (21.0-32.0); CREATININE 0.9 mg/dL (0.8-1.3); EST CRCL DRUG DOSING (CG) 69.9 mL/min; POTASSIUM,K 3.8 mmol/L (3.5-5.1)
[2024-07-20] MEDS: Losartan 25 MG Tab PO SCH (15:32)
[2024-07-21 05:54] LABS: BASOPHILS ABSOLUTE AUTO 0.01 K/uL (0.00-0.20); BASOPHILS PERCENT AUTO 0.2 % (0.0-1.0); HEMATOCRIT 40.2 % (42.0-52.0); HEMOGLOBIN 13.7 g/dL (14.0-18.0); IMMATURE GRAN ABSOLUTE AUTO 0.09 K/uL (0.00-0.05); IMMATURE GRAN PERCENT AUTO 1.9 % (0.0-0.4); LYMPHOCYTES ABSOLUTE AUTO 0.23 K/uL (1.00-4.80); LYMPHOCYTES PERCENT AUTO 4.9 % (24.0-44.0); MEAN CORPUSCULAR HGB CONC 34.1 g/dL (32.0-36.0); MEAN CORPUSCULAR VOLUME 85.2 fL (83.0-99.0); MEAN PLATELET VOLUME 10.1 fL (9.4-12.4); MONOCYTES PERCENT AUTO 6.4 % (0.0-8.0); NEUTROPHILS ABSOLUTE AUTO 4.05 K/uL (1.80-7.70); NEUTROPHILS PERCENT AUTO 86.6 % (41.0-71.0); PLATELET COUNT,PLT 111 K/uL (150-400); RED BLOOD CELL COUNT 4.72 M/uL (4.52-5.90); WHITE BLOOD CELL COUNT,WBC 4.68 K/uL (3.9-11.3)
[2024-07-21 06:31] LABS: CALCIUM 8.3 mg/dL (8.5-10.1); CREATININE 0.9 mg/dL (0.8-1.3); EST CRCL DRUG DOSING (CG) 69.9 mL/min; MAGNESIUM 2.3 mg/dL (1.8-2.4); POTASSIUM,K 3.9 mmol/L (3.5-5.1)
[2024-07-21] MEDS: Losartan 25 MG Tab PO SCH (08:41)
[2024-07-22 05:57] LABS: HEMATOCRIT 43.6 % (42.0-52.0); HEMOGLOBIN 14.8 g/dL (14.0-18.0); MEAN CORPUSCULAR HEMOGLOBIN 28.8 pg (28.0-32.0); MEAN CORPUSCULAR HGB CONC 33.9 g/dL (32.0-36.0); NRBC ABSOLUTE 0.02 K/uL (0.00-0.02); NRBC PERCENT 0.4 /100WBC (0.0-0.2); PLATELET COUNT,PLT 120 K/uL (150-400); RED BLOOD CELL COUNT 5.13 M/uL (4.52-5.90); WHITE BLOOD CELL COUNT,WBC 5.33 K/uL (3.9-11.3)
[2024-07-22 06:17] LABS: CALCIUM 8.4 mg/dL (8.5-10.1); CARBON DIOXIDE,CO2 29.1 mmol/L (21.0-32.0); CREATININE 0.8 mg/dL (0.8-1.3); EST CRCL DRUG DOSING (CG) 78.64 mL/min; MAGNESIUM 2.4 mg/dL (1.8-2.4); POTASSIUM,K 3.9 mmol/L (3.5-5.1)
[2024-07-22 06:25] LABS: BAND ABSOLUTE MAN 0.21; BAND PERCENT MAN 4 %; LYMPHOCYTES ABSOLUTE MAN 0.32 K/uL (1.00-4.80); LYMPHOCYTES PERCENT MAN 6 % (24-44); SEG NEUTROPHILS ABSOLUTE MAN 4.05 K/uL (1.80-7.70); SEG NEUTROPHILS PERCENT MAN 76 % (41-71)
[2024-07-22 06:26] LABS: MONOCYTES ABSOLUTE MAN 0.75 K/uL (0.00-0.80); MONOCYTES PERCENT MAN 14 % (0-8)
[2024-07-22] MEDS: predniSONE 20 MG Tab PO SCH (08:28)
[2024-07-23 06:30] LABS: HEMATOCRIT 42.5 % (42.0-52.0); HEMOGLOBIN 14.8 g/dL (14.0-18.0); MEAN CORPUSCULAR HEMOGLOBIN 29.4 pg (28.0-32.0); MEAN CORPUSCULAR HGB CONC 34.8 g/dL (32.0-36.0); MEAN CORPUSCULAR VOLUME 84.3 fL (83.0-99.0); NRBC ABSOLUTE 0.05 K/uL (0.00-0.02); NRBC PERCENT 0.9 /100WBC (0.0-0.2); PLATELET COUNT,PLT 134 K/uL (150-400); RED BLOOD CELL COUNT 5.04 M/uL (4.52-5.90)
[2024-07-23 06:46] LABS: CALCIUM 8.5 mg/dL (8.5-10.1); CARBON DIOXIDE,CO2 29.6 mmol/L (21.0-32.0); CREATININE 0.9 mg/dL (0.8-1.3); EST CRCL DRUG DOSING (CG) 69.9 mL/min; MAGNESIUM 2.1 mg/dL (1.8-2.4); POTASSIUM,K 3.6 mmol/L (3.5-5.1)
[2024-07-23 06:48] LABS: BAND ABSOLUTE MAN 0.16; BAND PERCENT MAN 3 %; SEG NEUTROPHILS ABSOLUTE MAN 3.94 K/uL (1.80-7.70); SEG NEUTROPHILS PERCENT MAN 73 % (41-71)
[2024-07-23 06:49] LABS: LYMPHOCYTES ABSOLUTE MAN 0.43 K/uL (1.00-4.80); LYMPHOCYTES PERCENT MAN 8 % (24-44); METAMYELOCYTE ABSOLUTE MAN 0.22; METAMYELOCYTE PERCENT MAN 4 %; MONOCYTES ABSOLUTE MAN 0.59 K/uL (0.00-0.80); MONOCYTES PERCENT MAN 11 % (0-8); MYELOCYTE ABSOLUTE MAN 0.05; MYELOCYTE PERCENT MAN 1 %
[2024-07-24 05:58] LABS: HEMATOCRIT 42.3 % (42.0-52.0); HEMOGLOBIN 14.8 g/dL (14.0-18.0); MEAN CORPUSCULAR HEMOGLOBIN 29.4 pg (28.0-32.0); MEAN CORPUSCULAR VOLUME 83.9 fL (83.0-99.0); MEAN PLATELET VOLUME 9.7 fL (9.4-12.4); NRBC ABSOLUTE 0.05 K/uL (0.00-0.02); NRBC PERCENT 0.8 /100WBC (0.0-0.2); PLATELET COUNT,PLT 129 K/uL (150-400); RED BLOOD CELL COUNT 5.04 M/uL (4.52-5.90); WHITE BLOOD CELL COUNT,WBC 5.91 K/uL (3.9-11.3)
[2024-07-24 06:16] LABS: CALCIUM 8.1 mg/dL (8.5-10.1); CARBON DIOXIDE,CO2 30.1 mmol/L (21.0-32.0); CREATININE 0.9 mg/dL (0.8-1.3); EST CRCL DRUG DOSING (CG) 69.9 mL/min; MAGNESIUM 2.3 mg/dL (1.8-2.4); POTASSIUM,K 3.7 mmol/L (3.5-5.1)
[2024-07-24 06:35] LABS: LYMPHOCYTES ABSOLUTE MAN 0.47 K/uL (1.00-4.80); LYMPHOCYTES PERCENT MAN 8 % (24-44); MONOCYTES PERCENT MAN 22 % (0-8); SEG NEUTROPHILS ABSOLUTE MAN 4.14 K/uL (1.80-7.70); SEG NEUTROPHILS PERCENT MAN 70 % (41-71)
[2024-07-24] MEDS: Pantoprazole 40 MG Tab.CR PO SCH (09:17)
== END 2024-07-24 15:15 | disposition home health service (06) | DRG 871 ==
LOC: MW.ED 16:23 → MW.MS 21:29
PROVIDERS: ADMIT Internal Medicine; ATTEND Internal Medicine
DX: J18.9 Pneumonia, unspecified organism (principal); A41.9 Sepsis, unspecified organism; J15.9 Unspecified bacterial pneumonia; J96.01 Acute respiratory failure with hypoxia; D84.9 Immunodeficiency, unspecified; Z91.048 Other nonmedicinal substance allergy status; N17.9 Acute kidney failure, unspecified; C78.01 Secondary malignant neoplasm of right lung; Z68.30 Body mass index [BMI] 30.0-30.9, adult; Z75.8 Other problems related to medical facilities and other health care; C78.02 Secondary malignant neoplasm of left lung; C78.7 Secondary malignant neoplasm of liver and intrahepatic bile duct; C79.31 Secondary malignant neoplasm of brain; Z66 Do not resuscitate; J84.178 Other interstitial pulmonary diseases with fibrosis in diseases classified elsewhere; E86.0 Dehydration; E66.9 Obesity, unspecified; M10.9 Gout, unspecified; D50.9 Iron deficiency anemia, unspecified; R33.9 Retention of urine, unspecified; G47.30 Sleep apnea, unspecified; D69.6 Thrombocytopenia, unspecified; I10 Essential (primary) hypertension; C43.9 Malignant melanoma of skin, unspecified; Z68.31 Body mass index [BMI] 31.0-31.9, adult; Z97.3 Presence of spectacles and contact lenses; Z88.8 Allergy status to other drugs, medicaments and biological substances; Z88.1 Allergy status to other antibiotic agents; Z79.52 Long term (current) use of systemic steroids; Z86.16 Personal history of COVID-19; Z90.49 Acquired absence of other specified parts of digestive tract; Z90.89 Acquired absence of other organs; Z79.899 Other long term (current) drug therapy; Z86.0100 Personal history of colon polyps, unspecified
CPT/HCPCS: 0241U; 36415; 51701; 51702; 51798; 71045; 71045-26; 80048; 80053; 81001; 82947; 83605; 83735; 83880; 84484; 85025; 87040; 87486; 87581; 87633; 87641; 87899; 93005; 93010; 96360; 97110-GP; 97116-GP; 97162-GP; 97530-GP; 99223; 99231; 99232; 99233; 99238; 99285; 99285-25; A9270-GY; J1642; J1956; J2543; J2919; J3490; J7030

== ENCOUNTER 2024-07-28 23:24 | Emergency (ER) | payer MEDICARE, BC ==
[2024-07-28] MEDS ORDERED: Sodium Chloride 0.9% 10 ML Syringe FLUSH PRN (23:26)
[2024-07-29 00:01] LABS: BASE EXCESS VENOUS -2.3 (-2.0-3.0); PH,VENOUS 7.38 (7.31-7.41)
[2024-07-29 00:03] LABS: HEMOGLOBIN 16.6 g/dL (14.0-18.0); MEAN CORPUSCULAR HEMOGLOBIN 29.3 pg (28.0-32.0); MEAN CORPUSCULAR HGB CONC 33.9 g/dL (32.0-36.0); MEAN CORPUSCULAR VOLUME 86.6 fL (83.0-99.0); MEAN PLATELET VOLUME 10.1 fL (9.4-12.4); NRBC ABSOLUTE 0.05 K/uL (0.00-0.02); NRBC PERCENT 0.4 /100WBC (0.0-0.2); PLATELET COUNT,PLT 140 K/uL (150-400); RED BLOOD CELL COUNT 5.66 M/uL (4.52-5.90); WHITE BLOOD CELL COUNT,WBC 11.77 K/uL (3.9-11.3)
[2024-07-29] MEDS: Sodium Chloride 0.9% 500 ML IV SCH (00:04)
[2024-07-29 00:29] LABS: INR 1.06 (0.86-1.11)
[2024-07-29 00:32] LABS: A/G RATIO 0.9 (0.9-1.6); ALBUMIN 2.8 g/dL (3.4-5.0); BILIRUBIN TOTAL 1.4 mg/dL (0.2-1.0); CALCIUM 8.4 mg/dL (8.5-10.1); CARBON DIOXIDE,CO2 21.6 mmol/L (21.0-32.0); CREATININE 1.1 mg/dL (0.8-1.3); EST CRCL DRUG DOSING (CG) 57.19 mL/min; MAGNESIUM 2.1 mg/dL (1.8-2.4); POTASSIUM,K 3.4 mmol/L (3.5-5.1); PROTEIN TOTAL,TP 5.9 g/dL (6.4-8.2)
[2024-07-29 00:41] LABS: BAND ABSOLUTE MAN 0.35; BAND PERCENT MAN 3 %; SEG NEUTROPHILS ABSOLUTE MAN 9.42 K/uL (1.80-7.70); SEG NEUTROPHILS PERCENT MAN 80 % (41-71)
[2024-07-29 00:42] LABS: LYMPHOCYTES ABSOLUTE MAN 0.82 K/uL (1.00-4.80); LYMPHOCYTES PERCENT MAN 7 % (24-44); MONOCYTES ABSOLUTE MAN 1.18 K/uL (0.00-0.80); MONOCYTES PERCENT MAN 10 % (0-8)
[2024-07-29] MEDS: Iopamidol 755 Mg/ML 100 ML Bottle IVPUSH ONE (02:01)
[2024-07-29] MEDS: Heparin Sodium 5,000 Units/ML Vial IVPUSH ONE ×2 (02:25→03:37)
[2024-07-29] MEDS: Heparin Sodium/0.45% NaCl 25,000 UNITS/250 ML BAG ONE (02:31)
[2024-07-29] MEDS: Heparin Sodium/0.45% NaCl 25,000 UNITS/250 ML BAG IV SCH (03:31)
[2024-07-29] MEDS: Sodium Chloride 0.9% 1,000 ML IV ONE (03:46)
[2024-07-29] MEDS: Levofloxacin/Dextrose 5%-Water 750 MG in Premix Bag 1 BAG IV ONE (03:46)
== END 2024-07-29 05:39 ==
LOC: MW.ED 23:24
DX: I21.4 Non-ST elevation (NSTEMI) myocardial infarction (principal); I11.0 Hypertensive heart disease with heart failure; I50.9 Heart failure, unspecified; I26.02 Saddle embolus of pulmonary artery with acute cor pulmonale; R79.89 Other specified abnormal findings of blood chemistry; R74.01 Elevation of levels of liver transaminase levels; Z85.820 Personal history of malignant melanoma of skin; Z92.21 Personal history of antineoplastic chemotherapy; Z85.841 Personal history of malignant neoplasm of brain; E66.9 Obesity, unspecified; Z88.1 Allergy status to other antibiotic agents; Z91.048 Other nonmedicinal substance allergy status; Z79.899 Other long term (current) drug therapy; Z86.16 Personal history of COVID-19; Z90.49 Acquired absence of other specified parts of digestive tract; Z68.32 Body mass index [BMI] 32.0-32.9, adult
CPT/HCPCS: 36415; 71045; 71275; 80053; 82803; 83605; 83690; 83735; 83880; 84484; 85025; 85610; 85730; 87040; 87428; 93005; 96361; 96365; 96366; 96375; 96376; 99285; J1644; J1956; J7030; J7040; Q9967; 93010